=== PATIENT | male | born 1940 | race Caucasian/White ===

== ENCOUNTER 2016-11-22 02:53 | Emergency (ER) | payer MEDICARE ==
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
== END 2016-11-22 03:45 | disposition home or self-care (01) ==
LOC: FB.ED 02:53
CPT/HCPCS: 99282

== ENCOUNTER 2017-02-14 18:27 | Inpatient (IN) | payer MEDICARE ==
[2017-02-14] MEDS: Sodium Chloride 0.9% 10 ML Syringe FLUSH PRN ×2 (19:51→20:11)
[2017-02-14] MEDS ORDERED: Morphine 4 MG/ML Syringe IVPUSH ONE (19:52)
[2017-02-14] MEDS ORDERED: diphenhydrAMINE 50 MG/ML SDV IVPUSH ONE (20:01)
[2017-02-14] MEDS ORDERED: methylPREDNISolone Sodium Succinate 125 MG/2 ML SDV IVPUSH ONE (20:03)
[2017-02-14] MEDS ORDERED: Sodium Chloride 0.9% 10 ML Syringe FLUSH PRN (21:39)
[2017-02-14] MEDS ORDERED: Docusate Sodium 100 MG Cap PO PRN (21:39)
[2017-02-14] MEDS ORDERED: Ondansetron 4 MG/2 ML SDV IV PRN (21:39)
--- NOTE | 2017-02-14 21:39 | EDM.PDOC ---
ED HPI GENERAL MEDICAL PROBLEM - General Chief Complaint: Back Pain or Injury Stated Complaint: FALL Time Seen by Provider: 02/14/17 18:35 Source of Information: Reports: Patient, EMS, EMS Notes Reviewed History Limitations: Reports: Altered Mental Status, Physical Impairment - History of Present Illness INITIAL COMMENTS - FREE TEXT/NARRATIVE: 76 y.o.w.m.with liver mets fell today and came to the ed after he fell at home. Pt is a poor historian, no family. Onset: Today, Gradual Onset Date: 02/14/17 Onset Time: 15:00 Duration: Hour(s): Location: Reports: Back Quality: Reports: Pressure, Stabbing Severity: Moderate Improves with: Reports: Cold Therapy Worsens with: Reports: Movement Context: Reports: Other (fall) Lower Back Pain Score (Numeric/FACES): 10 - Related Data Allergies Allergy/AdvReac Type Severity Reaction Status Date / Time Barbiturates Allergy Cannot Verified 02/14/17 18:31 Remember codeine Allergy Cannot Verified 02/14/17 18:31 Remember cortisone [Cortisone] Allergy Cannot Verified 02/14/17 18:31 Remember gabapentin Allergy UNKNOWN Verified 02/14/17 18:31 iodine Allergy Cannot Verified 02/14/17 18:31 Remember meperidine HCl [From Demerol] Allergy Cannot Verified 02/14/17 18:31 Remember morphine Allergy Cannot Verified 02/14/17 18:31 Remember Penicillins Allergy Cannot Verified 02/14/17 18:31 Remember Sulfa (Sulfonamide Allergy Cannot Verified 02/14/17 18:31 Antibiotics) Remember Tetanus Vaccines and Toxoid Allergy Cannot Verified 02/14/17 18:31 [Tetanus Vaccines & Toxoid] Remember tramadol Allergy Cannot Verified 02/14/17 18:31 Remember opti-raydye Allergy Cannot Uncoded 07/06/16 15:09 Remember Home Meds: Home Meds Baclofen 10 mg PO BID 10/23/13 [History] Cimetidine 800 mg PO BID 10/23/13 [History] Fluticasone Propionate [Flonase] 2 spray GORGE DAILY 10/23/13 [History] Lisinopril 10 mg PO BEDTIME 10/23/13 [History] Metoprolol Tartrate [Lopressor] 100 mg PO BID 10/23/13 [History] Omeprazole 40 mg PO DAILY 10/23/13 [History] Triamcinolone Acetonide [Kenalog 0.1% Crm] 1 applic TOP BID PRN 10/23/13 [ History] Warfarin [Coumadin] 5 mg PO ASDIRECTED 10/23/13 [History] metFORMIN [Glucophage XR] 750 mg PO BID 10/23/13 [History] Calcium Carbonate/Vitamin D3 [Calcium Carb 500 MG] 600 mg PO BID 07/03/16 [ History] Levocetirizine Dihydrochloride [Xyzal] 5 mg PO DAILY 07/03/16 [History] Loperamide [Imodium] 4 mg PO QID PRN 07/03/16 [History] Multivitamin [Multivitamins] 1 each PO DAILY 07/03/16 [History] Tamsulosin [Flomax] 0.4 mg PO BEDTIME 07/03/16 [History] atorvaSTATin [Lipitor] 10 mg PO BEDTIME 07/03/16 [History] Aspirin [Adult Low Dose Aspirin EC] 81 mg PO DAILY 02/15/17 [History] Past Medical History HEENT History: Reports: Hard of Hearing Cardiovascular History: Reports: Afib, CAD, Hypertension, SOB on Exertion Respiratory History: Reports: SOB Gastrointestinal History: Reports: GERD Genitourinary History: Reports: Other (See Below) Other Genitourinary History: CHRONIC KIDNEY DISEASE Musculoskeletal History: Reports: Other (See Below) Other Musculoskeletal History: DJD Endocrine/Metabolic History: Reports: Diabetes, Type II Oncologic (Cancer) History: Reports: Bladder Social & Family History - Tobacco Use Smoking Status *Q: Former Smoker Years of Tobacco use: 5 Used Tobacco, but Quit: Yes Month Tobacco Last Used: unknown Second Hand Smoke Exposure: No - Caffeine Use Caffeine Use: Reports: Coffee, Soda - Alcohol Use Days Per Week of Alcohol Use: 0 - Recreational Drug Use Recreational Drug Use: No ED ROS GENERAL - Review of Systems Review Of Systems: Unable To Obtain ED EXAM,LOWER BACK PAIN/INJURY - Physical Exam Exam: See Below Exam Limited By: Physical Impairment General Appearance: Alert, WD/WN, Mild Distress, Obese Eye Exam: Bilateral Eye: Normal Inspection Ears: Normal External Exam Nose: Normal Inspection Throat/Mouth: Normal Inspection Head: Atraumatic, Normocephalic, Facial Tenderness Neck: Normal Inspection, Supple Respiratory/Chest: No Respiratory Distress, Lungs Clear, Normal Breath Sounds ( poor insp effort) Cardiovascular: Normal Peripheral Pulses, Regular Rate, Rhythm GI/Abdominal: Normal Bowel Sounds, Soft (Male) Exam: Deferred Rectal (Males) Exam: Deferred Back Exam: CVA Tenderness (R), Muscle Spasm, Paraspinal Tenderness, Vertebral Tenderness Extremities: Normal Inspection Neurological: Alert, Normal Mood/Affect, Straight Leg Raise (L) (20 degree), Straight Leg Raise (R) (20 degree), Difficulty Walking Psychiatric: Depressed Mood Skin Exam: Warm, Dry, Intact, Pallor Lymphatic: Other (liver mets) EKG INTERPRETATION EKG Date: 02/15/17 Time: 00:40 Rhythm: NSR Rate (beats/min): 91 [place]: normal P-wave: present QRS: normal ST-T: normal QT: normal Comparison: NA - no prior EKG Course - Vital Signs Text/Narrative:: 76 y.o.w.m.with liver mets fell today and came to the ed after he fell at home. Pt is a poor historian, no family. PE: severe RL back tenderness L1 are, obese, dementia. LabsL WBC 19K HGB 8.3 Na 122 K 6.0 Imaging: L 1 fx, new Mets in liver, not new. Impression: RL back tenderness L1 are, obese, dementia, frequent falls, L1 fx, ( new), urinary retention, UTI, hyperkalemia, Anemia, Hyponatremia, renal insuff, UTI, hypomagnesia. Tx: NS, CaCl, Kayexalate, Levequin, Albut neb, Morphin 2 mg Reexam: Improved. Plan: Admit to med surge tele Addendum: (Noticed later on, pt is allergic to Morphine, was misinformed by pt, gave solu medrol and benadryl, no complication) 02/15/2017 Was called to the bedside, pt has CP: Pt c/o SSCP, aperared pale and dehydrated. Labs: Troponin 0.6 WBC 35.1 Cr. 2.3 HGB 9.0 SBP 113 UD: Hematuria Lactic acid was 2.3 pt was transfered to ICU Tx: NS, Abx, Levophed (SBP dropped to 84) Reexam: CP subsided after hydration, no NTG was given. BP improved after Levophed Last Recorded V/S: Last Vital Signs Temp 36.7 C 02/16/17 06:00 Pulse 91 02/15/17 23:10 Resp 14 02/16/17 06:45 BP 108/62 02/16/17 06:45 Pulse Ox 95 02/16/17 06:45 - Orders/Labs/Meds Orders: Medication Orders Hydrocodone Bitart/Acetaminophen ([place] 325-10 Mg) 1 tab PO Q4H TRAMAINE Last Admin: 02/16/17 04:05 Dose: 1 tab Admin: 02/16/17 00:49 Dose: 1 tab Admin: 02/15/17 19:50 Dose: 1 tab Aspirin (Halfprin) 81 mg PO DAILY TRAMAINE Atorvastatin Calcium (Lipitor) 10 mg PO BEDTIME TRAMAINE Last Admin: 02/15/17 21:04 Dose: 10 mg Baclofen (Lioresal) 10 mg PO BID TRAMAINE Last Admin: 02/15/17 21:04 Dose: 10 mg Calcium Carbonate (Calcium Carbonate/Vitamin D 1250 Mg-200 Unit) 1 tab PO BID TRAMAINE Last Admin: 02/15/17 21:03 Dose: 1 tab Docusate Sodium (Colace) 100 mg PO BID PRN PRN Reason: Constipation Last Admin: 02/14/17 23:03 Dose: 100 mg Famotidine (Pepcid) 20 mg PO BID TRAMAINE Last Admin: 02/15/17 21:05 Dose: 20 mg Fluticasone Propionate (Flonase) 0 gm GORGE DAILY TRAMAINE Hydromorphone HCl (Dilaudid) 0.5 mg IVPUSH Q2H PRN PRN Reason: Pain (severe 7-10) Last Admin: 02/15/17 18:03 Dose: 0.5 mg Admin: 02/15/17 14:49 Dose: 0.5 mg Admin: 02/15/17 08:50 Dose: 0.5 mg Admin: 02/15/17 01:51 Dose: 0.5 mg Heparin Sodium/Dextrose (Heparin 25,000 Units In D5w 500 Ml) 25,000 units in 500 mls @ 20.16 mls/hr IV TITRATE TRAMAINE; 12 UNITS/KG/HR PRN Reason: Protocol Last Admin: 02/16/17 00:32 Dose: 12 units/kg/hr, 20.16 mls/hr Norepinephrine Bitartrate 4 mg (/ Dextrose/Water) 250 mls @ 7.5 mls/hr IV TITRATE TRAMAINE; 2 MCG/MIN PRN Reason: Protocol Last Titration: 02/16/17 05:32 Dose: 4 mcg/min, 15 mls/hr Titration: 02/16/17 04:30 Dose: 3 mcg/min, 11.25 mls/hr Titration: 02/16/17 03:45 Dose: 4 mcg/min, 15 mls/hr Titration: 02/16/17 03:33 Dose: 3 mcg/min, 11.25 mls/hr Admin: 02/16/17 03:01 Dose: 2 mcg/min, 7.5 mls/hr Sodium Chloride (Normal Saline) 1,000 mls @ 70 mls/hr IV ASDIRECTED [facility] Lisinopril (Prinivil) 10 mg PO BEDTIME [facility] Last Admin: 02/15/17 21:05 Dose: 10 mg Loperamide HCl (Imodium) 4 mg PO QID PRN PRN Reason: Diarrhea Last Admin: 02/15/17 13:12 Dose: 4 mg Metoprolol Tartrate (Lopressor) 100 mg PO BID [facility] Last Admin: 02/15/17 21:04 Dose: 100 mg Multivitamins/Minerals/Vitamin C (Tab-A-Lindsey) 1 tab PO DAILY [facility] Omeprazole (Omeprazole) 40 mg PO DAILY [facility] Ondansetron HCl (Zofran) 8 mg IV Q6H PRN PRN Reason: Nausea/Vomiting Sodium Chloride (Saline Flush) 10 ml FLUSH ASDIRECTED PRN PRN Reason: Keep Vein Open Last Admin: 02/16/17 00:31 Dose: 10 ml Admin: 02/15/17 08:51 Dose: 10 ml Admin: 02/15/17 01:51 Dose: 10 ml Admin: 02/15/17 00:50 Dose: 10 ml Admin: 02/15/17 00:42 Dose: 10 ml Admin: 02/14/17 20:11 Dose: 10 ml Admin: 02/14/17 19:51 Dose: 10 ml Sodium Chloride (Saline Flush) 10 ml FLUSH ASDIRECTED PRN PRN Reason: Keep Vein Open Tamsulosin HCl (Flomax) 0.4 mg PO BEDTIME [facility] Last Admin: 02/15/17 21:03 Dose: 0.4 mg Labs: Laboratory Tests 02/14/17 02/14/17 02/14/17 Range/Units 19:45 19:45 19:45 WBC 19.3 H (4.5-12.0) X10-3/uL RBC 3.61 L (4.30-5.75) x10(6)uL Hgb 8.3 L (11.5-15.5) g/dL Hct 25.3 L (30.0-51.3) % MCV 70.2 L (80-96) fL MCH 23.1 L (27.7-33.6) pg MCHC 32.9 (32.2-35.4) g/dL RDW 16.7 H (11.5-15.5) % Plt Count 404 H (125-369) X10(3)uL MPV 8.9 (7.4-10.4) fL Add Manual Diff Yes Neutrophils % (Manual) 83 H (46-82) % Band Neutrophils % 1 (0-6) % Lymphocytes % (Manual) 11 L (13-37) % Monocytes % (Manual) 5 (4-12) % Anisocytosis Rare Microcytosis Few PT 11.6 H (8.7-11.1) INR 1.15 H (0.89-1.13) Sodium 127 L (135-145) mmol/L Potassium 6.0 H D (3.5-5.3) mmol/L Chloride 98 L (100-110) mmol/L Carbon Dioxide 17 L (23-29) mmol/L BUN 38 H D (8-23) mg/dL Creatinine 2.8 H* (0.6-1.3) mg/dL Est Cr Clr Drug Dosing 23.87 mL/min Estimated GFR (MDRD) 22 L (>60) BUN/Creatinine Ratio 13.6 (9-20) Glucose 156 H (80-116) mg/dL Lactic Acid (0.5-2.2) mmol/L Calcium 9.5 (8.6-10.2) mg/dL Urine Color (YELLOW) Urine Appearance (CLEAR) Urine pH (5.0-6.5) Ur Specific [place] (1.010-1.025) Urine Protein (NEGATIVE) mg/dL Urine Glucose (UA) (NEGATIVE) mg/dL Urine Ketones (NEGATIVE) mg/dL Urine Occult Blood (NEGATIVE) Urine Nitrite (NEGATIVE) Urine Bilirubin (NEGATIVE) Urine Urobilinogen (NEGATIVE) mg/dL Ur Leukocyte Esterase (NEGATIVE) Urine RBC (0) Urine WBC (0) Ur Squamous Epith Cells (NS,R,O) Urine Bacteria (NS) Coarse Granular Casts (NS) 02/14/17 02/14/17 Range/Units 20:25 21:28 WBC (4.5-12.0) X10-3/uL RBC (4.30-5.75) x10(6)uL Hgb (11.5-15.5) g/dL Hct (30.0-51.3) % MCV (80-96) fL MCH (27.7-33.6) pg MCHC (32.2-35.4) g/dL RDW (11.5-15.5) % Plt Count (125-369) X10(3)uL MPV (7.4-10.4) fL Add Manual Diff Neutrophils % (Manual) (46-82) % Band Neutrophils % (0-6) % Lymphocytes % (Manual) (13-37) % Monocytes % (Manual) (4-12) % Anisocytosis Microcytosis PT (8.7-11.1) INR (0.89-1.13) Sodium (135-145) mmol/L Potassium (3.5-5.3) mmol/L Chloride (100-110) mmol/L Carbon Dioxide (23-29) mmol/L BUN (8-23) mg/dL Creatinine (0.6-1.3) mg/dL Est Cr Clr Drug Dosing mL/min Estimated GFR (MDRD) (>60) BUN/Creatinine Ratio (9-20) Glucose (80-116) mg/dL Lactic Acid 1.0 (0.5-2.2) mmol/L Calcium (8.6-10.2) mg/dL Urine Color Yellow (YELLOW) Urine Appearance Cloudy (CLEAR) Urine pH 5.0 (5.0-6.5) Ur Specific [place] 1.020 (1.010-1.025) Urine Protein 30 H (NEGATIVE) mg/dL Urine Glucose (UA) Normal (NEGATIVE) mg/dL Urine Ketones Negative (NEGATIVE) mg/dL Urine Occult Blood Large H (NEGATIVE) Urine Nitrite Negative (NEGATIVE) Urine Bilirubin Negative (NEGATIVE) Urine Urobilinogen Normal (NEGATIVE) mg/dL Ur Leukocyte Esterase Small H (NEGATIVE) Urine RBC 10-20 H (0) Urine WBC 5-10 (0) Ur Squamous Epith Cells Few H (NS,R,O) Urine Bacteria Few H (NS) Coarse Granular Casts Few H (NS) Meds: Medications Generic Name Dose Route Start Last Admin Trade Name Freq PRN Reason Stop Dose Admin Hydrocodone Bitart/Acetaminophen 1 tab 02/15/17 20:00 02/16/17 04:05 [place] 325-10 Mg PO 1 tab Q4H TRAMAINE Administration Aspirin 81 mg 02/16/17 09:00 Halfprin PO DAILY TRAMAINE Atorvastatin Calcium 10 mg 02/15/17 21:00 02/15/17 21:04 Lipitor PO 10 mg BEDTIME TRAMAINE Administration Baclofen 10 mg 02/15/17 21:00 02/15/17 21:04 Lioresal PO 10 mg BID TRAMAINE Administration Calcium Carbonate 1 tab 02/15/17 21:00 02/15/17 21:03 Calcium Carbonate/Vitamin D 1250 Mg-200 Unit PO 1 tab BID TRAMAINE Administration Docusate Sodium 100 mg 02/14/17 21:39 02/14/17 23:03 Colace PO 100 mg BID PRN Administration Constipation Famotidine 20 mg 02/15/17 21:00 02/15/17 21:05 Pepcid PO 20 mg BID TRAMAINE Administration Fluticasone Propionate 0 gm 02/16/17 09:00 Flonase GORGE DAILY TRAMAINE Hydromorphone HCl 0.5 mg 02/14/17 21:39 02/15/17 18:03 Dilaudid IVPUSH 0.5 mg Q2H PRN Administration Pain (severe 7-10) Heparin Sodium/Dextrose 25,000 units in 500 mls @ 20.16 mls/hr 02/15/17 23:30 02/16/17 00:32 Heparin 25,000 Units In D5w 500 Ml IV 12 units/kg/hr TITRATE TRAMAINE 20.16 mls/hr Protocol Administration 12 UNITS/KG/HR Norepinephrine Bitartrate 4 mg 250 mls @ 7.5 mls/hr 02/16/17 02:30 02/16/17 05:32 / Dextrose/Water IV 4 mcg/min TITRATE TRAMAINE 15 mls/hr Protocol Titration 2 MCG/MIN Sodium Chloride 1,000 mls @ 70 mls/hr 02/16/17 04:49 Normal Saline IV ASDIRECTED [facility]AMAINE Lisinopril 10 mg 02/15/17 21:00 02/15/17 21:05 Prinivil PO 10 mg BEDTIME TRAMAINE Administration Loperamide HCl 4 mg 02/15/17 12:13 02/15/17 13:12 Imodium PO 4 mg QID PRN Administration Diarrhea Metoprolol Tartrate 100 mg 02/15/17 21:00 02/15/17 21:04 Lopressor PO 100 mg BID TRAMAINE Administration Multivitamins/Minerals/Vitamin C 1 tab 02/16/17 09:00 Tab-A-Lindsey PO DAILY [facility]AMA[facility] Omeprazole 40 mg 02/16/17 09:00 Omeprazole PO DAILY [facility] Ondansetron HCl 8 mg 02/14/17 21:39 Zofran IV Q6H PRN Nausea/Vomiting Sodium Chloride 10 ml 02/14/17 19:13 02/16/17 00:31 Saline Flush FLUSH 10 ml ASDIRECTED PRN Administration Keep Vein Open Sodium Chloride 10 ml 02/14/17 21:39 Saline Flush FLUSH ASDIRECTED PRN Keep Vein Open Tamsulosin HCl 0.4 mg 02/15/17 21:00 02/15/17 21:03 Flomax PO 0.4 mg BEDTIME TRAMAINE Administration Discontinued Medications Generic Name Dose Route Start Last Admin Trade Name Freq PRN Reason Stop Dose Admin Hydrocodone Bitart/Acetaminophen 1 tab 02/15/17 16:11 02/15/17 16:42 [place] 325-5 Mg PO 1 tab Q4H PRN Administration Pain Albuterol 2.5 mg 02/15/17 00:09 02/15/17 00:52 Proventil Neb Soln NEB 02/15/17 00:10 2.5 mg Q2H STA Administration Calcium Chloride 1 gm 02/15/17 00:09 02/15/17 00:43 Calcium Chloride 10% IV 02/15/17 00:10 1 gm ONETIME ONE Administration Diphenhydramine HCl 25 mg 02/14/17 20:01 02/14/17 20:07 Benadryl IVPUSH 02/14/17 20:02 25 mg ONETIME ONE Administration Heparin Sodium (Porcine) 5,000 units 02/15/17 23:28 02/16/17 00:32 Heparin Sodium IVPUSH 02/15/17 23:29 5,000 units ONETIME ONE Administration Levofloxacin/Dextrose 500 mg/ 100 mls @ 100 mls/hr 02/14/17 21:47 02/14/17 23 :01 Premix IV 02/14/17 22:46 100 mls/hr ONETIME ONE Administration Sodium Chloride 250 mls @ 100 mls/hr 02/14/17 22:45 02/14/17 22:56 Normal Saline IV 100 mls/hr ASDIRECTED TRAMAINE Administration Sodium Chloride 1,000 mls @ 125 mls/hr 02/15/17 09:30 02/15/17 22:34 Normal Saline IV 125 mls/hr ASDIRECTED TRAMAINE Administration Sodium Chloride 1,000 mls @ 999 mls/hr 02/15/17 21:44 02/15/17 21:20 Normal Saline IV 02/15/17 22:44 999 mls/hr .BOLUS ONE Administration Vancomycin HCl 1,000 mg/ 250 mls @ 167 mls/hr 02/15/17 22:31 02/16/17 01:11 Dextrose/Water IV 02/16/17 00:00 Not Given ONETIME ONE Vancomycin HCl 1,500 mg/ 500 mls @ 333.333 mls/hr 02/15/17 23:00 02/16/17 00: 15 Sodium Chloride IV 02/16/17 00:29 333.333 mls/hr ONETIME ONE Administration Methylprednisolone Sodium Succinate 125 mg 02/14/17 20:03 02/14/17 20:07 Solu-Medrol IVPUSH 02/14/17 20:04 125 mg ONETIME ONE Administration Morphine Sulfate 4 mg 02/14/17 19:52 02/14/17 19:56 Morphine IVPUSH 02/14/17 19:53 4 mg ONETIME ONE Administration Nitroglycerin 1 gm 02/15/17 22:41 02/15/17 23:30 Nitro-Bid 2% TOP 02/15/17 22:42 Not Given ONETIME ONE Non-Formulary Medication 5 mg 02/16/17 09:00 Levocetirizine Dihydrochloride [Xyzal] PO DAILY TRAMAINE Sodium Polystyrene Sulfonate 45 gm 02/15/17 00:07 02/15/17 00:43 Kayexalate PO 02/15/17 00:08 45 gm NOW ONE Administration Tramadol HCl 50 mg 02/15/17 12:45 Ultram PO Q6H TRAMAINE Departure - Departure Time of Disposition: 20:00 Disposition: Admitted As Inpatient 64 Condition: fair Clinical Impression: Urinary (tract) obstruction Fall Qualifiers: Encounter type: subsequent encounter Qualified Code(s): W19.XXXD - Unspecified fall, subsequent encounter Closed L1 vertebral fracture Qualifiers: Encounter type: initial encounter Fracture morphology: other fracture Qualified Code(s): S32.018A - Other fracture of first lumbar vertebra, initial encounter for closed fracture Dementia Qualifiers: Dementia type: unspecified type - Discharge Information
[2017-02-14] MEDS ORDERED: Levofloxacin/Dextrose 5%-Water 500 MG in Premix Bag 1 BAG IV ONE (21:47)
[2017-02-14] MEDS ORDERED: Sodium Chloride 0.9% 250 ML IV SCH (22:45)
[2017-02-15] MEDS ORDERED: Sodium Polystyrene Sulfonate 15 GM/60 ML Susp 60 ML Bot PO ONE (00:07)
[2017-02-15] MEDS ORDERED: Calcium Chloride 10% 1 GM/10 ML Syringe IV ONE (00:09)
[2017-02-15] MEDS ORDERED: Albuterol 0.083% 2.5 MG/3 ML Neb Soln NEB STA (00:09)
[2017-02-15] MEDS: Sodium Chloride 0.9% 10 ML Syringe FLUSH PRN ×4 (00:42→08:51)
[2017-02-15] MEDS: HYDROmorphone 2 MG/ML SDV IVPUSH PRN ×5 (01:51→18:03)
--- NOTE | 2017-02-15 09:12 | PCM.HP ---
H&P History of Present Illness - General Date of Service: 02/15/17 Admit Problem/Dx: Admission Diagnosis/Problem Admission Diagnosis/Problem Back pain Source of Information: Patient History Limitations: Reports: Other (Hearing impairment) - History of Present Illness Initial Comments - Free Text/Narative: This is a 76-year-old male patient states he was taking something out of the oven yesterday. And he slipped and fell back and hit his head. He says he does not remember for about 30 minutes. After that he had excruciating back pain. He called the ambulance and was brought to the ER. He was diagnosed l1 compression fracture. He also had renal failure, leukocytosis, hyponatremia and liver metastases on this CT. He states he has history of bladder cancer and is not being followed by anyone at this time. He states he has low back pain at 10/10. He has no leg pain, paresthesias or weakness. He states he's had low back and neck surgery in the past. Lower Back Pain Score (Numeric/FACES): 10 - Related Data Allergies/Adverse Reactions: Allergies Allergy/AdvReac Type Severity Reaction Status Date / Time Barbiturates Allergy Cannot Verified 02/14/17 18:31 Remember codeine Allergy Cannot Verified 02/14/17 18:31 Remember cortisone [Cortisone] Allergy Cannot Verified 02/14/17 18:31 Remember gabapentin Allergy UNKNOWN Verified 02/14/17 18:31 iodine Allergy Cannot Verified 02/14/17 18:31 Remember meperidine HCl [From Demerol] Allergy Cannot Verified 02/14/17 18:31 Remember morphine Allergy Cannot Verified 02/14/17 18:31 Remember Penicillins Allergy Cannot Verified 02/14/17 18:31 Remember Sulfa (Sulfonamide Allergy Cannot Verified 02/14/17 18:31 Antibiotics) Remember Tetanus Vaccines and Toxoid Allergy Cannot Verified 02/14/17 18:31 [Tetanus Vaccines & Toxoid] Remember tramadol Allergy Cannot Verified 02/14/17 18:31 Remember opti-raydye Allergy Cannot Uncoded 07/06/16 15:09 Remember Home Medications: Home Meds Baclofen 10 mg PO BID 10/23/13 [History] Cimetidine 800 mg PO BID 10/23/13 [History] Fluticasone Propionate [Flonase] 2 spray GORGE DAILY 10/23/13 [History] Lisinopril 10 mg PO BEDTIME 10/23/13 [History] Metoprolol Tartrate [Lopressor] 100 mg PO BID 10/23/13 [History] Omeprazole 40 mg PO DAILY 10/23/13 [History] Triamcinolone Acetonide [Kenalog 0.1% Crm] 1 applic TOP BID PRN 10/23/13 [ History] Warfarin [Coumadin] 5 mg PO ASDIRECTED 10/23/13 [History] metFORMIN [Glucophage XR] 750 mg PO BID 10/23/13 [History] Calcium Carbonate/Vitamin D3 [Calcium Carb 500 MG] 600 mg PO BID 07/03/16 [ History] Levocetirizine Dihydrochloride [Xyzal] 5 mg PO DAILY 07/03/16 [History] Loperamide [Imodium] 4 mg PO QID PRN 07/03/16 [History] Multivitamin [Multivitamins] 1 each PO DAILY 07/03/16 [History] Tamsulosin [Flomax] 0.4 mg PO BEDTIME 07/03/16 [History] atorvaSTATin [Lipitor] 10 mg PO BEDTIME 07/03/16 [History] Aspirin [Adult Low Dose Aspirin EC] 81 mg PO DAILY 02/15/17 [History] Past Medical History HEENT History: Reports: Hard of Hearing Cardiovascular History: Reports: Afib, CAD, Hypertension, SOB on Exertion Respiratory History: Reports: SOB Gastrointestinal History: Reports: GERD Genitourinary History: Reports: Other (See Below) Other Genitourinary History: CHRONIC KIDNEY DISEASE Musculoskeletal History: Reports: Other (See Below) Other Musculoskeletal History: DJD Endocrine/Metabolic History: Reports: Diabetes, Type II Oncologic (Cancer) History: Reports: Bladder Social & Family History - Tobacco Use Smoking Status *Q: Former Smoker Years of Tobacco use: 5 Used Tobacco, but Quit: Yes Month Tobacco Last Used: unknown Second Hand Smoke Exposure: No - Caffeine Use Caffeine Use: Reports: Coffee, Soda - Alcohol Use Days Per Week of Alcohol Use: 0 - Recreational Drug Use Recreational Drug Use: No H&P Review of Systems - Review of Systems: Review Of Systems: See Below General: Reports: No Symptoms HEENT: Reports: No Symptoms Pulmonary: Reports: Shortness of Breath, Wheezing Cardiovascular: Reports: No Symptoms Gastrointestinal: Reports: Abdominal Pain, Diarrhea. Denies: Black Stool, Bloody Stool, Hematochezia, Melena, Nausea, Vomiting Genitourinary: Reports: Dysuria Musculoskeletal: Reports: Neck Pain, Back Pain Skin: Reports: Rash Psychiatric: Reports: No Symptoms Neurological: Reports: No Symptoms Hematologic/Lymphatic: Reports: No Symptoms Immunologic: Reports: No Symptoms Exam - Exam Exam: See Below - Vital Signs Vital Signs: Last Vital Signs Temp 98.5 F 02/15/17 06:30 Pulse 80 02/15/17 06:30 Resp 12 02/15/17 06:30 BP 139/62 02/15/17 06:30 Pulse Ox 92 L 02/15/17 06:30 Weight: 185 lb 9.6 oz - Exam General: Alert, Oriented, Cooperative, Other (Hard of hearing) HEENT: Conjunctiva Clear, Mucosa Moist & Rose, Posterior Pharynx Clear. No: Hearing Intact Neck: Supple, Trachea Midline Lungs: Clear to Auscultation, Normal Respiratory Effort. No: Crackles, Rales, Rhonchi, Rub Cardiovascular: Regular Rate, Regular Rhythm. No: Bradycardia, Tachycardia Abdomen: Normal Bowel Sounds, Soft. No: Distention, Guarding, Tenderness Back Exam: Normal Inspection, Vertebral Tenderness (Low back to palpation) Extremities: Normal Inspection. No: Edema Skin: Warm, Rash (Elbows) Neuro Extensive - Mental Status: Alert, Oriented x3, Normal Mood/Affect, Normal Cognition Neuro Extensive - Motor, Sensory, Reflexes: Normal Gait Psychiatric: Alert, Normal Affect, Normal Mood - Patient Data Lab Results last 24 hrs: Laboratory Results - last 24 hr 02/15/17 02/15/17 Range/Units 00:11 06:30 Sodium 128 L (135-145) mmol/L Potassium 5.5 H (3.5-5.3) mmol/L Chloride 100 (100-110) mmol/L Carbon Dioxide 18 L (23-29) mmol/L BUN 36 H (8-23) mg/dL Creatinine 2.3 H* (0.6-1.3) mg/dL Est Cr Clr Drug Dosing 28.19 mL/min Estimated GFR (MDRD) 28 L (>60) BUN/Creatinine Ratio 15.7 (9-20) Glucose 233 H (80-116) mg/dL Calcium 9.4 (8.6-10.2) mg/dL Magnesium 1.4 L (1.8-2.5) mg/dL Result Diagrams: 02/14/17 19:45 02/15/17 06:30 Imaging Impressions last 24 hrs: CT scan shows new L1 fracture and liver metastases, thickening of the bladder, increased density within the collecting system of the left kidney possibly representing hemorrhage. CT of the neck shows no acute changes CT of the head shows chronic small vessel disease and age related changes *Q Meaningful Use (ADM) - VTE *Q VTE Criteria *Q: - Stroke *Q Stroke Criteria *Q: - AMI *Q AMI Criteria *Q: - Problem List (1) Microcytic anemia SNOMED Code(s): 615198341 ICD Code: D50.9 - IRON DEFICIENCY ANEMIA, UNSPECIFIED Status: Acute Current Visit: Yes (2) Renal failure SNOMED Code(s): 22800756 ICD Code: N19 - UNSPECIFIED KIDNEY FAILURE Status: Acute Current Visit: Yes Qualifiers: Renal failure chronicity: chronic Chronic kidney disease stage: stage 4 ( severe) Qualified Code(s): N18.4 - Chronic kidney disease, stage 4 (severe) (3) Dyspnea SNOMED Code(s): 686729757 ICD Code: R06.00 - DYSPNEA, UNSPECIFIED Status: Acute Current Visit: Yes (4) Bladder CA in situ SNOMED Code(s): 27422973 ICD Code: D09.0 - CARCINOMA IN SITU OF BLADDER Status: Acute Current Visit: Yes (5) Liver metastasis Status: Acute Current Visit: Yes (6) Palliative care status SNOMED Code(s): 682984730 ICD Code: Z51.5 - ENCOUNTER FOR PALLIATIVE CARE Status: Acute Current Visit: Yes (7) Closed L1 vertebral fracture SNOMED Code(s): 888704731 ICD Code: S32.019A - UNSP FRACTURE OF FIRST LUMBAR VERTEBRA, INIT FOR CLOS FX Status: Acute Current Visit: Yes Qualifiers: Encounter type: initial encounter Fracture morphology: other fracture Qualified Code(s): S32.018A - Other fracture of first lumbar vertebra, initial encounter for closed fracture (8) Fall SNOMED Code(s): 8568399, 465426266 ICD Code: W19.XXXA - UNSPECIFIED FALL, INITIAL ENCOUNTER Status: Acute Current Visit: Yes Qualifiers: Encounter type: subsequent encounter Qualified Code(s): W19.XXXD - Unspecified fall, subsequent encounter (9) Hyponatremia SNOMED Code(s): 35110759 ICD Code: E87.1 - HYPO-OSMOLALITY AND HYPONATREMIA Status: Acute Current Visit: Yes Problem List Initiated/Reviewed/Updated: Yes Orders Last 24hrs: Active Orders 24 hr Category Date Time Status Telemetry Monitoring [Cardiac Monitoring] [RC] QSHIFT Care 02/15/17 00:10 Active Sodium Chloride 0.9% [Normal Saline] 250 ml Med 02/14/17 22:45 Active IV ASDIRECTED EKG 12 Lead [EK] Routine Ther 02/15/17 00:11 Ordered Medication Orders Docusate Sodium (Colace) 100 mg PO BID PRN PRN Reason: Constipation Last Admin: 02/14/17 23:03 Dose: 100 mg Hydromorphone HCl (Dilaudid) 0.5 mg IVPUSH Q2H PRN PRN Reason: Pain (severe 7-10) Last Admin: 02/15/17 08:50 Dose: 0.5 mg Admin: 02/15/17 01:51 Dose: 0.5 mg Sodium Chloride (Normal Saline) 250 mls @ 100 mls/hr IV ASDIRECTED TRAMAINE Last Admin: 02/14/17 22:56 Dose: 100 mls/hr Ondansetron HCl (Zofran) 8 mg IV Q6H PRN PRN Reason: Nausea/Vomiting Sodium Chloride (Saline Flush) 10 ml FLUSH ASDIRECTED PRN PRN Reason: Keep Vein Open Last Admin: 02/15/17 08:51 Dose: 10 ml Admin: 02/15/17 01:51 Dose: 10 ml Admin: 02/15/17 00:50 Dose: 10 ml Admin: 02/15/17 00:42 Dose: 10 ml Admin: 02/14/17 20:11 Dose: 10 ml Admin: 02/14/17 19:51 Dose: 10 ml Sodium Chloride (Saline Flush) 10 ml FLUSH ASDIRECTED PRN PRN Reason: Keep Vein Open Assessment/Plan Comment:: 1. Admit for pain control. 2. Patient wants to be a full code. 3. PT/OT evaluation. 4. Findings some thing for pain control. He has lots allergies and renal failure which limits our choices. 5. Guaiac stools, ferritin, reticulocyte count, and iron. 6. EKG because a previous history of atrial fib. 7. chest x-ray because of shortness of breath. 8. MRI renal in regards to abnormal CT and left kidney. 9. Renal diet. 10. IV fluids to try to correct his hyponatremia.
[2017-02-15] MEDS ORDERED: Loperamide 2 MG Cap PO PRN (12:13)
[2017-02-15] MEDS ORDERED: traMADol 50 MG Tab PO SCH (12:45)
[2017-02-15] MEDS: Sodium Chloride 0.9% 1,000 ML IV SCH ×2 (14:46→22:34)
[2017-02-15] MEDS ORDERED: Acetaminophen/HYDROcodone 325-5 MG Tab PO PRN (16:11)
[2017-02-15] MEDS: Acetaminophen/HYDROcodone 325-10 MG Tab PO SCH (19:50)
[2017-02-15] MEDS ORDERED: Tamsulosin 0.4 MG Cap.ER PO SCH (21:00)
[2017-02-15] MEDS ORDERED: Metoprolol Tartrate 50 MG Tab PO SCH (21:00)
[2017-02-15] MEDS ORDERED: Lisinopril 10 MG Tab PO SCH (21:00)
[2017-02-15] MEDS ORDERED: atorvaSTATin 10 MG Tab PO SCH (21:00)
[2017-02-15] MEDS: Calcium Carbonate/Vitamin D3 1250 MG-200 Unit Tab PO SCH (21:03)
[2017-02-15] MEDS: Baclofen 10 MG Tab PO SCH (21:04)
[2017-02-15] MEDS: Famotidine 20 MG Tab PO SCH (21:05)
[2017-02-15] MEDS ORDERED: Sodium Chloride 0.9% 1,000 ML IV ONE (21:44)
[2017-02-15] MEDS ORDERED: Nitroglycerin 2% Oint 1 GM UD Packet TOP ONE (22:41)
[2017-02-15] MEDS ORDERED: Heparin Sodium 5,000 Units/ML Vial IVPUSH ONE (23:28)
[2017-02-15] MEDS ORDERED: Heparin Sodium/D5W 25,000 UNITS/500 ML BAG IV SCH (23:30)
[2017-02-16] MEDS: Sodium Chloride 0.9% 10 ML Syringe FLUSH PRN (00:31)
[2017-02-16] MEDS: Acetaminophen/HYDROcodone 325-10 MG Tab PO SCH ×3 (00:49→08:25)
[2017-02-16] MEDS ORDERED: Norepinephrine 4 MG in Dextrose 5% in Water 246 ML IV SCH ×2 (02:30)
[2017-02-16] MEDS ORDERED: Sodium Chloride 0.9% 1,000 ML IV SCH (04:49)
[2017-02-16] MEDS: Calcium Carbonate/Vitamin D3 1250 MG-200 Unit Tab PO SCH (08:57)
[2017-02-16] MEDS ORDERED: Aspirin 81 MG Tab.EC PO SCH (09:00)
[2017-02-16] MEDS ORDERED: Non-Formulary Medication 1 Each (Levocetirizine Dihydrochloride [Xyzal] 5 MG) PO SCH (09:00)
[2017-02-16] MEDS ORDERED: Omeprazole 20 MG Cap.CR PO SCH (09:00)
[2017-02-16] MEDS ORDERED: Multivitamin Tab PO SCH (09:00)
[2017-02-16] MEDS ORDERED: Metoprolol Tartrate 100 MG Tab PO SCH (09:00)
[2017-02-16] MEDS ORDERED: Fluticasone Propionate Nasal Spray 16 GM Bottle NAS SCH (09:00)
--- NOTE | 2017-02-16 09:09 | PCM.PN ---
- General Info Date of Service: 02/16/17 Admission Dx/Problem (Free Text): Patient states he is having bad low back pain today again. The nurses state the hydrocodone has been helping. He also states he has some chest pain currently. Last night he had chest pain and was transferred to the ICU. White count was 37 he was started on vancomycin and heparin and troponin was 0.67. He is currently Levophed drip per the doctor in house. This morning his pressure has come up and then wean him off we will set. His pain is more. And his troponin I was 3.75. EKG with normal sinus rhythm to left bundle branch block. Patient's always short of breath he states. - Patient Data Vitals - most recent: Last Vital Signs Temp 97.9 F 02/16/17 08:15 Pulse 112 H 02/16/17 08:46 Resp 20 02/16/17 08:30 BP 141/72 H 02/16/17 08:46 Pulse Ox 92 L 02/16/17 08:30 Weight - most recent: 185 lb 9.6 oz I&O - last 24 hours: Intake & Output 02/15/17 02/16/17 02/16/17 22:59 06:59 14:59 Intake Total 2791 1369 Output Total 400 250 Balance 2391 1119 Lab Results last 24 hrs: Laboratory Results - last 24 hr 02/15/17 02/15/17 02/15/17 Range/Units 17:24 21:25 21:33 WBC 35.1 H* (4.5-12.0) X10-3/uL RBC 3.87 L (4.30-5.75) x10(6)uL Hgb 9.0 L (11.5-15.5) g/dL Hct 27.3 L (30.0-51.3) % MCV 70.6 L (80-96) fL MCH 23.1 L (27.7-33.6) pg MCHC 32.7 (32.2-35.4) g/dL RDW 16.8 H (11.5-15.5) % Plt Count 644 H (125-369) X10(3)uL MPV 8.9 (7.4-10.4) fL Add Manual Diff Yes Neutrophils % (Manual) 80 (46-82) % Band Neutrophils % 3 (0-6) % Lymphocytes % (Manual) 10 L (13-37) % Monocytes % (Manual) 7 (4-12) % Hypochromasia Poikilocytosis Anisocytosis Microcytosis PT (8.7-11.1) INR (0.89-1.13) APTT (24.4-33.2) SECONDS D-Dimer, Quantitative (100-400) ng/mL Sodium (135-145) mmol/L Potassium (3.5-5.3) mmol/L Chloride (100-110) mmol/L Carbon Dioxide (23-29) mmol/L BUN (8-23) mg/dL Creatinine (0.6-1.3) mg/dL Est Cr Clr Drug Dosing mL/min Estimated GFR (MDRD) (>60) BUN/Creatinine Ratio (9-20) Glucose (80-116) mg/dL POC Glucose 178 H (80-116) mg/dL Lactic Acid (0.5-2.2) mmol/L Calcium (8.6-10.2) mg/dL Magnesium (1.8-2.5) mg/dL Total Bilirubin (0.1-1.3) mg/dL AST (5-27) IU/L ALT (14-26) IU/L Alkaline Phosphatase (56-112) IU/L Creatine Kinase (60-160) IU/L Troponin I (0.02-0.06) NG/ML B-Natriuretic Peptide (0-100) pg/mL Total Protein (6.0-8.0) g/dL Albumin (3.2-4.6) g/dL Globulin g/dL Albumin/Globulin Ratio Urine Color Yellow (YELLOW) Urine Appearance Slightly cloudy (CLEAR) Urine pH 6.0 (5.0-6.5) Ur Specific [place] 1.015 (1.010-1.025) Urine Protein 100 H (NEGATIVE) mg/dL Urine Glucose (UA) 50 H (NEGATIVE) mg/dL Urine Ketones Negative (NEGATIVE) mg/dL Urine Occult Blood Large H (NEGATIVE) Urine Nitrite Negative (NEGATIVE) Urine Bilirubin Negative (NEGATIVE) Urine Urobilinogen Normal (NEGATIVE) mg/dL Ur Leukocyte Esterase Negative (NEGATIVE) Urine RBC 5-10 (0) Urine WBC 0-5 (0) Ur Squamous Epith Cells Rare (NS,R,O) Urine Bacteria Few H (NS) Coarse Granular Casts Few H (NS) 02/15/17 02/15/17 02/15/17 Range/Units 21:33 21:33 21:33 WBC (4.5-12.0) X10-3/uL RBC (4.30-5.75) x10(6)uL Hgb (11.5-15.5) g/dL Hct (30.0-51.3) % MCV (80-96) fL MCH (27.7-33.6) pg MCHC (32.2-35.4) g/dL RDW (11.5-15.5) % Plt Count (125-369) X10(3)uL MPV (7.4-10.4) fL Add Manual Diff Neutrophils % (Manual) (46-82) % Band Neutrophils % (0-6) % Lymphocytes % (Manual) (13-37) % Monocytes % (Manual) (4-12) % Hypochromasia Poikilocytosis Anisocytosis Microcytosis PT 12.0 H (8.7-11.1) INR 1.19 H (0.89-1.13) APTT (24.4-33.2) SECONDS D-Dimer, Quantitative (100-400) ng/mL Sodium 129 L (135-145) mmol/L Potassium 4.6 (3.5-5.3) mmol/L Chloride 101 (100-110) mmol/L Carbon Dioxide 16 L (23-29) mmol/L BUN 39 H (8-23) mg/dL Creatinine 2.3 H* (0.6-1.3) mg/dL Est Cr Clr Drug Dosing 28.19 mL/min Estimated GFR (MDRD) 28 L (>60) BUN/Creatinine Ratio 17.0 (9-20) Glucose 257 H (80-116) mg/dL POC Glucose (80-116) mg/dL Lactic Acid (0.5-2.2) mmol/L Calcium 9.1 (8.6-10.2) mg/dL Magnesium 1.3 L (1.8-2.5) mg/dL Total Bilirubin (0.1-1.3) mg/dL AST (5-27) IU/L ALT (14-26) IU/L Alkaline Phosphatase (56-112) IU/L Creatine Kinase 89 (60-160) IU/L Troponin I 0.67 H* (0.02-0.06) NG/ML B-Natriuretic Peptide (0-100) pg/mL Total Protein (6.0-8.0) g/dL Albumin (3.2-4.6) g/dL Globulin g/dL Albumin/Globulin Ratio Urine Color (YELLOW) Urine Appearance (CLEAR) Urine pH (5.0-6.5) Ur Specific [place] (1.010-1.025) Urine Protein (NEGATIVE) mg/dL Urine Glucose (UA) (NEGATIVE) mg/dL Urine Ketones (NEGATIVE) mg/dL Urine Occult Blood (NEGATIVE) Urine Nitrite (NEGATIVE) Urine Bilirubin (NEGATIVE) Urine Urobilinogen (NEGATIVE) mg/dL Ur Leukocyte Esterase (NEGATIVE) Urine RBC (0) Urine WBC (0) Ur Squamous Epith Cells (NS,R,O) Urine Bacteria (NS) Coarse Granular Casts (NS) 02/15/17 02/15/17 02/15/17 Range/Units 21:33 21:33 22:50 WBC (4.5-12.0) X10-3/uL RBC (4.30-5.75) x10(6)uL Hgb (11.5-15.5) g/dL Hct (30.0-51.3) % MCV (80-96) fL MCH (27.7-33.6) pg MCHC (32.2-35.4) g/dL RDW (11.5-15.5) % Plt Count (125-369) X10(3)uL MPV (7.4-10.4) fL Add Manual Diff Neutrophils % (Manual) (46-82) % Band Neutrophils % (0-6) % Lymphocytes % (Manual) (13-37) % Monocytes % (Manual) (4-12) % Hypochromasia Poikilocytosis Anisocytosis Microcytosis PT (8.7-11.1) INR (0.89-1.13) APTT 26.8 (24.4-33.2) SECONDS D-Dimer, Quantitative 2810 H (100-400) ng/mL Sodium (135-145) mmol/L Potassium (3.5-5.3) mmol/L Chloride (100-110) mmol/L Carbon Dioxide (23-29) mmol/L BUN (8-23) mg/dL Creatinine (0.6-1.3) mg/dL Est Cr Clr Drug Dosing mL/min Estimated GFR (MDRD) (>60) BUN/Creatinine Ratio (9-20) Glucose (80-116) mg/dL POC Glucose (80-116) mg/dL Lactic Acid 2.4 H (0.5-2.2) mmol/L Calcium (8.6-10.2) mg/dL Magnesium (1.8-2.5) mg/dL Total Bilirubin (0.1-1.3) mg/dL AST (5-27) IU/L ALT (14-26) IU/L Alkaline Phosphatase (56-112) IU/L Creatine Kinase (60-160) IU/L Troponin I (0.02-0.06) NG/ML B-Natriuretic Peptide (0-100) pg/mL Total Protein (6.0-8.0) g/dL Albumin (3.2-4.6) g/dL Globulin g/dL Albumin/Globulin Ratio Urine Color (YELLOW) Urine Appearance (CLEAR) Urine pH (5.0-6.5) Ur Specific [place] (1.010-1.025) Urine Protein (NEGATIVE) mg/dL Urine Glucose (UA) (NEGATIVE) mg/dL Urine Ketones (NEGATIVE) mg/dL Urine Occult Blood (NEGATIVE) Urine Nitrite (NEGATIVE) Urine Bilirubin (NEGATIVE) Urine Urobilinogen (NEGATIVE) mg/dL Ur Leukocyte Esterase (NEGATIVE) Urine RBC (0) Urine WBC (0) Ur Squamous Epith Cells (NS,R,O) Urine Bacteria (NS) Coarse Granular Casts (NS) 02/16/17 02/16/17 02/16/17 Range/Units 06:20 06:20 06:20 WBC 24.1 H (4.5-12.0) X10-3/uL RBC 3.58 L (4.30-5.75) x10(6)uL Hgb 8.0 L (11.5-15.5) g/dL Hct 25.4 L (30.0-51.3) % MCV 70.9 L (80-96) fL MCH 22.4 L (27.7-33.6) pg MCHC 31.6 L (32.2-35.4) g/dL RDW 17.2 H (11.5-15.5) % Plt Count 499 H (125-369) X10(3)uL MPV 9.1 (7.4-10.4) fL Add Manual Diff Yes Neutrophils % (Manual) 81 (46-82) % Band Neutrophils % (0-6) % Lymphocytes % (Manual) 15 (13-37) % Monocytes % (Manual) 4 (4-12) % Hypochromasia Few Poikilocytosis Few Anisocytosis Few Microcytosis Moderate H PT (8.7-11.1) INR (0.89-1.13) APTT (24.4-33.2) SECONDS D-Dimer, Quantitative (100-400) ng/mL Sodium 129 L (135-145) mmol/L Potassium 4.9 (3.5-5.3) mmol/L Chloride 101 (100-110) mmol/L Carbon Dioxide 20 L (23-29) mmol/L BUN 39 H (8-23) mg/dL Creatinine 2.2 H* (0.6-1.3) mg/dL Est Cr Clr Drug Dosing 29.47 mL/min Estimated GFR (MDRD) 29 L (>60) BUN/Creatinine Ratio 17.7 (9-20) Glucose 170 H D (80-116) mg/dL POC Glucose (80-116) mg/dL Lactic Acid (0.5-2.2) mmol/L Calcium 8.5 L (8.6-10.2) mg/dL Magnesium (1.8-2.5) mg/dL Total Bilirubin 0.4 (0.1-1.3) mg/dL AST 34 H D (5-27) IU/L ALT 17 D (14-26) IU/L Alkaline Phosphatase 165 H (56-112) IU/L Creatine Kinase (60-160) IU/L Troponin I 3.75 H* (0.02-0.06) NG/ML B-Natriuretic Peptide (0-100) pg/mL Total Protein 6.3 (6.0-8.0) g/dL Albumin 2.9 L (3.2-4.6) g/dL Globulin 3.4 g/dL Albumin/Globulin Ratio 0.9 Urine Color (YELLOW) Urine Appearance (CLEAR) Urine pH (5.0-6.5) Ur Specific [place] (1.010-1.025) Urine Protein (NEGATIVE) mg/dL Urine Glucose (UA) (NEGATIVE) mg/dL Urine Ketones (NEGATIVE) mg/dL Urine Occult Blood (NEGATIVE) Urine Nitrite (NEGATIVE) Urine Bilirubin (NEGATIVE) Urine Urobilinogen (NEGATIVE) mg/dL Ur Leukocyte Esterase (NEGATIVE) Urine RBC (0) Urine WBC (0) Ur Squamous Epith Cells (NS,R,O) Urine Bacteria (NS) Coarse Granular Casts (NS) 02/16/17 02/16/17 Range/Units 06:20 06:20 WBC (4.5-12.0) X10-3/uL RBC (4.30-5.75) x10(6)uL Hgb (11.5-15.5) g/dL Hct (30.0-51.3) % MCV (80-96) fL MCH (27.7-33.6) pg MCHC (32.2-35.4) g/dL RDW (11.5-15.5) % Plt Count (125-369) X10(3)uL MPV (7.4-10.4) fL Add Manual Diff Neutrophils % (Manual) (46-82) % Band Neutrophils % (0-6) % Lymphocytes % (Manual) (13-37) % Monocytes % (Manual) (4-12) % Hypochromasia Poikilocytosis Anisocytosis Microcytosis PT (8.7-11.1) INR (0.89-1.13) APTT 56.1 H (24.4-33.2) SECONDS D-Dimer, Quantitative (100-400) ng/mL Sodium (135-145) mmol/L Potassium (3.5-5.3) mmol/L Chloride (100-110) mmol/L Carbon Dioxide (23-29) mmol/L BUN (8-23) mg/dL Creatinine (0.6-1.3) mg/dL Est Cr Clr Drug Dosing mL/min Estimated GFR (MDRD) (>60) BUN/Creatinine Ratio (9-20) Glucose (80-116) mg/dL POC Glucose (80-116) mg/dL Lactic Acid (0.5-2.2) mmol/L Calcium (8.6-10.2) mg/dL Magnesium (1.8-2.5) mg/dL Total Bilirubin (0.1-1.3) mg/dL AST (5-27) IU/L ALT (14-26) IU/L Alkaline Phosphatase (56-112) IU/L Creatine Kinase (60-160) IU/L Troponin I (0.02-0.06) NG/ML B-Natriuretic Peptide 327 H (0-100) pg/mL Total Protein (6.0-8.0) g/dL Albumin (3.2-4.6) g/dL Globulin g/dL Albumin/Globulin Ratio Urine Color (YELLOW) Urine Appearance (CLEAR) Urine pH (5.0-6.5) Ur Specific [place] (1.010-1.025) Urine Protein (NEGATIVE) mg/dL Urine Glucose (UA) (NEGATIVE) mg/dL Urine Ketones (NEGATIVE) mg/dL Urine Occult Blood (NEGATIVE) Urine Nitrite (NEGATIVE) Urine Bilirubin (NEGATIVE) Urine Urobilinogen (NEGATIVE) mg/dL Ur Leukocyte Esterase (NEGATIVE) Urine RBC (0) Urine WBC (0) Ur Squamous Epith Cells (NS,R,O) Urine Bacteria (NS) Coarse Granular Casts (NS) [facility]os Results last 24 hrs: Microbiology 02/15/17 15:00 Stool Occult Blood (AMOS) - Final Stool / Feces NEGATIVE OCCULT BLOOD Med Orders - Current: Current Medications Hydrocodone Bitart/Acetaminophen ([place] 325-10 Mg) 1 tab PO Q4H [facility] Last Admin: 02/16/17 08:25 Dose: 1 tab Aspirin (Halfprin) 81 mg PO DAILY [facility] Last Admin: 02/16/17 08:57 Dose: 81 mg Atorvastatin Calcium (Lipitor) 10 mg PO BEDTIME [facility] Last Admin: 02/15/17 21:04 Dose: 10 mg Baclofen (Lioresal) 10 mg PO BID [facility] Last Admin: 02/15/17 21:04 Dose: 10 mg Calcium Carbonate (Calcium Carbonate/Vitamin D 1250 Mg-200 Unit) 1 tab PO BID [facility] Last Admin: 02/16/17 08:57 Dose: Not Given Docusate Sodium (Colace) 100 mg PO BID PRN PRN Reason: Constipation Last Admin: 02/14/17 23:03 Dose: 100 mg Famotidine (Pepcid) 20 mg PO BID [facility] Last Admin: 02/15/17 21:05 Dose: 20 mg Fluticasone Propionate (Flonase) 0 gm GORGE DAILY [facility] Last Admin: 02/16/17 08:57 Dose: Not Given Hydromorphone HCl (Dilaudid) 0.5 mg IVPUSH Q2H PRN PRN Reason: Pain (severe 7-10) Last Admin: 02/15/17 18:03 Dose: 0.5 mg Heparin Sodium/Dextrose (Heparin 25,000 Units In D5w 500 Ml) 25,000 units in 500 mls @ 20.16 mls/hr IV TITRATE TRAMAINE; 12 UNITS/KG/HR PRN Reason: Protocol Last Admin: 02/16/17 00:32 Dose: 12 units/kg/hr, 20.16 mls/hr Norepinephrine Bitartrate 4 mg (/ Dextrose/Water) 250 mls @ 7.5 mls/hr IV TITRATE TRAMAINE; 2 MCG/MIN PRN Reason: Protocol Last Titration: 02/16/17 08:37 Dose: 0 mcg/min, 0 mls/hr Sodium Chloride (Normal Saline) 1,000 mls @ 70 mls/hr IV ASDIRECTED TRAMAINE Lisinopril (Prinivil) 10 mg PO BEDTIME [facility] Last Admin: 02/15/17 21:05 Dose: 10 mg Loperamide HCl (Imodium) 4 mg PO QID PRN PRN Reason: Diarrhea Last Admin: 02/15/17 13:12 Dose: 4 mg Metoprolol Tartrate (Lopressor) 100 mg PO BID [facility] Last Admin: 02/16/17 08:58 Dose: Not Given Multivitamins/Minerals/Vitamin C (Tab-A-Lindsey) 1 tab PO DAILY [facility] Last Admin: 02/16/17 08:59 Dose: Not Given Omeprazole (Omeprazole) 40 mg PO DAILY@0600 [facility] Last Admin: 02/16/17 08:58 Dose: Not Given Ondansetron HCl (Zofran) 8 mg IV Q6H PRN PRN Reason: Nausea/Vomiting Sodium Chloride (Saline Flush) 10 ml FLUSH ASDIRECTED PRN PRN Reason: Keep Vein Open Last Admin: 02/16/17 00:31 Dose: 10 ml Sodium Chloride (Saline Flush) 10 ml FLUSH ASDIRECTED PRN PRN Reason: Keep Vein Open Tamsulosin HCl (Flomax) 0.4 mg PO BEDTIME [facility] Last Admin: 02/15/17 21:03 Dose: 0.4 mg Discontinued Medications Hydrocodone Bitart/Acetaminophen ([place] 325-5 Mg) 1 tab PO Q4H PRN PRN Reason: Pain Last Admin: 02/15/17 16:42 Dose: 1 tab Albuterol (Proventil Neb Soln) 2.5 mg NEB Q2H STA Stop: 02/15/17 00:10 Last Admin: 02/15/17 00:52 Dose: 2.5 mg Calcium Chloride (Calcium Chloride 10%) 1 gm IV ONETIME ONE Stop: 02/15/17 00:10 Last Admin: 02/15/17 00:43 Dose: 1 gm Diphenhydramine HCl (Benadryl) 25 mg IVPUSH ONETIME ONE Stop: 02/14/17 20:02 Last Admin: 02/14/17 20:07 Dose: 25 mg Heparin Sodium (Porcine) (Heparin Sodium) 5,000 units IVPUSH ONETIME ONE Stop: 02/15/17 23:29 Last Admin: 02/16/17 00:32 Dose: 5,000 units Levofloxacin/Dextrose 500 mg/ (Premix) 100 mls @ 100 mls/hr IV ONETIME ONE Stop: 02/14/17 22:46 Last Admin: 02/14/17 23:01 Dose: 100 mls/hr Sodium Chloride (Normal Saline) 250 mls @ 100 mls/hr IV ASDIRECTED [facility] Last Admin: 02/14/17 22:56 Dose: 100 mls/hr Sodium Chloride (Normal Saline) 1,000 mls @ 125 mls/hr IV ASDIRECTED [facility] Last Admin: 02/15/17 22:34 Dose: 125 mls/hr Sodium Chloride (Normal Saline) 1,000 mls @ 999 mls/hr IV .BOLUS ONE Stop: 02/15/17 22:44 Last Admin: 02/15/17 21:20 Dose: 999 mls/hr Vancomycin HCl 1,000 mg/ (Dextrose/Water) 250 mls @ 167 mls/hr IV ONETIME ONE Stop: 02/16/17 00:00 Last Admin: 02/16/17 01:11 Dose: Not Given Vancomycin HCl 1,500 mg/ (Sodium Chloride) 500 mls @ 333.333 mls/hr IV ONETIME ONE Stop: 02/16/17 00:29 Last Admin: 02/16/17 00:15 Dose: 333.333 mls/hr Methylprednisolone Sodium Succinate (Solu-Medrol) 125 mg IVPUSH ONETIME ONE Stop: 02/14/17 20:04 Last Admin: 02/14/17 20:07 Dose: 125 mg Metoprolol Tartrate (Lopressor) 100 mg PO BID [facility] Last Admin: 02/15/17 21:04 Dose: 100 mg Morphine Sulfate (Morphine) 4 mg IVPUSH ONETIME ONE Stop: 02/14/17 19:53 Last Admin: 02/14/17 19:56 Dose: 4 mg Nitroglycerin (Nitro-Bid 2%) 1 gm TOP ONETIME ONE Stop: 02/15/17 22:42 Last Admin: 02/15/17 23:30 Dose: Not Given Non-Formulary Medication (Levocetirizine Dihydrochloride [Xyzal]) 5 mg PO DAILY [facility] Sodium Polystyrene Sulfonate (Kayexalate) 45 gm PO NOW ONE Stop: 02/15/17 00:08 Last Admin: 02/15/17 00:43 Dose: 45 gm Tramadol HCl (Ultram) 50 mg PO Q6H [facility] - Exam General: alert, oriented, mild distress Neck: supple Lungs: Clear to auscultation, Normal respiratory effort, Decreased breath sounds Cardiovascular: Regular Rhythm, No Murmurs, Tachycardia Extremities: no edema - Problem List & Annotations (1) Microcytic anemia SNOMED Code(s): 745868693 Code(s): D50.9 - IRON DEFICIENCY ANEMIA, UNSPECIFIED Status: Acute Current Visit: Yes (2) Renal failure SNOMED Code(s): 84160674 Code(s): N19 - UNSPECIFIED KIDNEY FAILURE Status: Acute Current Visit: Yes Qualifiers: Renal failure chronicity: chronic Chronic kidney disease stage: stage 4 ( severe) Qualified Code(s): N18.4 - Chronic kidney disease, stage 4 (severe) (3) Dyspnea SNOMED Code(s): 910693215 Code(s): R06.00 - DYSPNEA, UNSPECIFIED Status: Acute Current Visit: Yes (4) Bladder CA in situ SNOMED Code(s): 45749011 Code(s): D09.0 - CARCINOMA IN SITU OF BLADDER Status: Acute Current Visit : Yes (5) Liver metastasis Status: Acute Current Visit: Yes (6) Palliative care status SNOMED Code(s): 726582255 Code(s): Z51.5 - ENCOUNTER FOR PALLIATIVE CARE Status: Acute Current Visit: Yes (7) Closed L1 vertebral fracture SNOMED Code(s): 114779141 Code(s): S32.019A - UNSP FRACTURE OF FIRST LUMBAR VERTEBRA, INIT FOR CLOS FX Status: Acute Current Visit: Yes Qualifiers: Encounter type: initial encounter Fracture morphology: other fracture Qualified Code(s): S32.018A - Other fracture of first lumbar vertebra, initial encounter for closed fracture (8) Fall SNOMED Code(s): 7215714, 435382788 Code(s): W19.XXXA - UNSPECIFIED FALL, INITIAL ENCOUNTER Status: Acute Current Visit: Yes Qualifiers: Encounter type: subsequent encounter Qualified Code(s): W19.XXXD - Unspecified fall, subsequent encounter (9) Hyponatremia SNOMED Code(s): 99415668 Code(s): E87.1 - HYPO-OSMOLALITY AND HYPONATREMIA Status: Acute Current Visit: Yes (10) Myocardial infarction acute SNOMED Code(s): 86641410 Code(s): I21.3 - ST ELEVATION (STEMI) MYOCARDIAL INFARCTION OF UNSP SITE Status: Acute Current Visit: Yes Qualifiers: Myocardial infarction ST status: non-ST elevation myocardial infarction Qualified Code(s): I21.4 - Non-ST elevation (NSTEMI) myocardial infarction - Problem List Review Problem List Initiated/Reviewed/Updated: Yes - My Orders Last 24 Hours: My Active Orders 02/15/17 09:22 EKG 12 Lead [EK] Routine 02/15/17 09:30 FERRITIN [REF] Routine IRON [REF] Routine RETIC AUTOMATED WITHOUT IRF [REF] Routine 02/15/17 12:13 Loperamide [Imodium] 4 mg PO QID PRN 02/15/17 12:16 Accu Check [Blood Glucose Check, Bedside] [RC] 0700,1700 02/15/17 20:00 Acetaminophen/HYDROcodone [[place] 325-10 MG] 1 tab PO Q4H 02/15/17 21:00 Baclofen [Lioresal] 10 mg PO BID Calcium Carbonate/Vitamin D3 [Calcium Carbonate/Vitamin D 1250 MG-200 Unit] 1 tab PO BID Famotidine [Pepcid] 20 mg PO BID Lisinopril [Prinivil] 10 mg PO BEDTIME Tamsulosin [Flomax] 0.4 mg PO BEDTIME atorvaSTATin [Lipitor] 10 mg PO BEDTIME 02/15/17 Dinner Consistent Carbohydrate Diet [DIET] 02/16/17 09:00 Aspirin [Halfprin] 81 mg PO DAILY Fluticasone Propionate [Flonase] 0 gm GORGE DAILY Metoprolol Tartrate [Lopressor] 100 mg PO BID Multivitamins [Tab-A-Lindsey] 1 tab PO DAILY Omeprazole 40 mg PO DAILY@0600 - Plan Plan:: 1. I called [address] Adhikari. Will see him in transfer. 2. Hold his Lopressor because his pressure has been low although it's improved. 3. Continue aspirin, heparin and hydrocodone. Otherwise n.p.o. 4. Transfer by ambulance.
--- NOTE | 2017-02-16 09:17 | PCM.DCSUM1 ---
Discharge Summary - Hospital Course Free Text/Narrative:: Hospital course-patient was admitted and started on Dilantin IV. Patient has lots of allergies to narcotics. He felt that he could take hydrocodone. This is for his low back which is the only thing is really complaining about. Hydrocodone 5 x 3 25 a started and it didn't help him increase it to 10 x 3 25 which is much better. In the evening he started having chest pain, tachycardia and hypotension. The doctor in house transferred to ICU put on vancomycin, levo fed drip, heparin. His initial troponin was 0.67 mg. In the morning was 3.75. Call for no doctor Dr. Adhikari. We'll transfer by self and the patient's chronic renal failure, bladder cancer. He is [facility] patient is very vague about being followed for his bladder cancer. There is liver metastases on the CT scan. His white count was very elevated therefore he was put on vancomycin. This morning it is improved but still elevated. No sign of infection identified. Brief History: This is a 76-year-old male patient states he was taking something out of the oven yesterday. And he slipped and fell back and hit his head. He says he does not remember for about 30 minutes. After that he had excruciating back pain. He called the ambulance and was brought to the ER. He was diagnosed l1 compression fracture. He also had renal failure, leukocytosis , hyponatremia and liver metastases on this CT. He states he has history of bladder cancer and is not being followed by anyone at this time. He states he has low back pain at 10/10. He has no leg pain, paresthesias or weakness. He states he's had low back and neck surgery in the past. - Discharge Data Discharge Date: 02/16/17 Discharge Disposition: DC/Tfer to Acute Hospital 02 Condition: Serious - Discharge Diagnosis/Problem(s) (1) Microcytic anemia SNOMED Code(s): 118098108 ICD Code: D50.9 - IRON DEFICIENCY ANEMIA, UNSPECIFIED Status: Acute Current Visit: Yes (2) Renal failure SNOMED Code(s): 39047889 ICD Code: N19 - UNSPECIFIED KIDNEY FAILURE Status: Acute Current Visit: Yes Qualifiers: Renal failure chronicity: chronic Chronic kidney disease stage: stage 4 ( severe) Qualified Code(s): N18.4 - Chronic kidney disease, stage 4 (severe) (3) Dyspnea SNOMED Code(s): 662776486 ICD Code: R06.00 - DYSPNEA, UNSPECIFIED Status: Acute Current Visit: Yes (4) Bladder CA in situ SNOMED Code(s): 04023942 ICD Code: D09.0 - CARCINOMA IN SITU OF BLADDER Status: Acute Current Visit: Yes (5) Liver metastasis Status: Acute Current Visit: Yes (6) Palliative care status SNOMED Code(s): 021392731 ICD Code: Z51.5 - ENCOUNTER FOR PALLIATIVE CARE Status: Acute Current Visit: Yes (7) Closed L1 vertebral fracture SNOMED Code(s): 477226571 ICD Code: S32.019A - UNSP FRACTURE OF FIRST LUMBAR VERTEBRA, INIT FOR CLOS FX Status: Acute Current Visit: Yes Qualifiers: Encounter type: initial encounter Fracture morphology: other fracture Qualified Code(s): S32.018A - Other fracture of first lumbar vertebra, initial encounter for closed fracture (8) Fall SNOMED Code(s): 9522234, 341492615 ICD Code: W19.XXXA - UNSPECIFIED FALL, INITIAL ENCOUNTER Status: Acute Current Visit: Yes Qualifiers: Encounter type: subsequent encounter Qualified Code(s): W19.XXXD - Unspecified fall, subsequent encounter (9) Hyponatremia SNOMED Code(s): 95917109 ICD Code: E87.1 - HYPO-OSMOLALITY AND HYPONATREMIA Status: Acute Current Visit: Yes (10) Myocardial infarction acute SNOMED Code(s): 60658536 ICD Code: I21.3 - ST ELEVATION (STEMI) MYOCARDIAL INFARCTION OF UNSP SITE Status: Acute Current Visit: Yes Qualifiers: Myocardial infarction ST status: non-ST elevation myocardial infarction Qualified Code(s): I21.4 - Non-ST elevation (NSTEMI) myocardial infarction - Patient Instructions Diet: NPO Activity: Bedrest Driving: Do Not Drive Showering/Bathing: May Shower Other/Special Instructions: 1. Transfer [facility] ambulance. - Discharge Plan Home Medications: Home Meds Aspirin [Adult Low Dose Aspirin EC] 81 mg PO DAILY 02/15/17 [History] Acetaminophen/HYDROcodone [Prosperity 325-10 MG] 1 tab PO Q4H #0 tablet 02/16/17 [Rx] Aspirin [Halfprin] 81 mg PO DAILY #0 tab.ec 02/16/17 [Rx] HYDROmorphone [Dilaudid] 0.5 mg IVPUSH Q2H PRN #0 sdv 02/16/17 [Rx] Forms: ED Department Discharge Referrals: PCP,None [Primary Care Provider] - - Discharge Summary/Plan Comment DC Time >30 min.: Yes (Seeing the patient, coordinating care with [facility]. Greater 30 minutes spent) - Patient Data Vitals - Most Recent: Last Vital Signs Temp 97.9 F 02/16/17 08:15 Pulse 112 H 02/16/17 08:46 Resp 20 02/16/17 08:30 BP 141/72 H 02/16/17 08:46 Pulse Ox 92 L 02/16/17 08:30 Weight - Most Recent: 185 lb 9.6 oz I&O - Last 24 hours: Intake & Output 02/15/17 02/16/17 02/16/17 22:59 06:59 14:59 Intake Total 2791 1369 Output Total 400 250 Balance 2391 1119 Lab Results - Last 24 hrs: Laboratory Results - last 24 hr 02/15/17 02/15/17 02/15/17 Range/Units 17:24 21:25 21:33 WBC 35.1 H* (4.5-12.0) X10-3/uL RBC 3.87 L (4.30-5.75) x10(6)uL Hgb 9.0 L (11.5-15.5) g/dL Hct 27.3 L (30.0-51.3) % MCV 70.6 L (80-96) fL MCH 23.1 L (27.7-33.6) pg MCHC 32.7 (32.2-35.4) g/dL RDW 16.8 H (11.5-15.5) % Plt Count 644 H (125-369) X10(3)uL MPV 8.9 (7.4-10.4) fL Add Manual Diff Yes Neutrophils % (Manual) 80 (46-82) % Band Neutrophils % 3 (0-6) % Lymphocytes % (Manual) 10 L (13-37) % Monocytes % (Manual) 7 (4-12) % Hypochromasia Poikilocytosis Anisocytosis Microcytosis PT (8.7-11.1) INR (0.89-1.13) APTT (24.4-33.2) SECONDS D-Dimer, Quantitative (100-400) ng/mL Sodium (135-145) mmol/L Potassium (3.5-5.3) mmol/L Chloride (100-110) mmol/L Carbon Dioxide (23-29) mmol/L BUN (8-23) mg/dL Creatinine (0.6-1.3) mg/dL Est Cr Clr Drug Dosing mL/min Estimated GFR (MDRD) (>60) BUN/Creatinine Ratio (9-20) Glucose (80-116) mg/dL POC Glucose 178 H (80-116) mg/dL Lactic Acid (0.5-2.2) mmol/L Calcium (8.6-10.2) mg/dL Magnesium (1.8-2.5) mg/dL Total Bilirubin (0.1-1.3) mg/dL AST (5-27) IU/L ALT (14-26) IU/L Alkaline Phosphatase (56-112) IU/L Creatine Kinase (60-160) IU/L Troponin I (0.02-0.06) NG/ML B-Natriuretic Peptide (0-100) pg/mL Total Protein (6.0-8.0) g/dL Albumin (3.2-4.6) g/dL Globulin g/dL Albumin/Globulin Ratio Urine Color Yellow (YELLOW) Urine Appearance Slightly cloudy (CLEAR) Urine pH 6.0 (5.0-6.5) Ur Specific [place] 1.015 (1.010-1.025) Urine Protein 100 H (NEGATIVE) mg/dL Urine Glucose (UA) 50 H (NEGATIVE) mg/dL Urine Ketones Negative (NEGATIVE) mg/dL Urine Occult Blood Large H (NEGATIVE) Urine Nitrite Negative (NEGATIVE) Urine Bilirubin Negative (NEGATIVE) Urine Urobilinogen Normal (NEGATIVE) mg/dL Ur Leukocyte Esterase Negative (NEGATIVE) Urine RBC 5-10 (0) Urine WBC 0-5 (0) Ur Squamous Epith Cells Rare (NS,R,O) Urine Bacteria Few H (NS) Coarse Granular Casts Few H (NS) 02/15/17 02/15/17 02/15/17 Range/Units 21:33 21:33 21:33 WBC (4.5-12.0) X10-3/uL RBC (4.30-5.75) x10(6)uL Hgb (11.5-15.5) g/dL Hct (30.0-51.3) % MCV (80-96) fL MCH (27.7-33.6) pg MCHC (32.2-35.4) g/dL RDW (11.5-15.5) % Plt Count (125-369) X10(3)uL MPV (7.4-10.4) fL Add Manual Diff Neutrophils % (Manual) (46-82) % Band Neutrophils % (0-6) % Lymphocytes % (Manual) (13-37) % Monocytes % (Manual) (4-12) % Hypochromasia Poikilocytosis Anisocytosis Microcytosis PT 12.0 H (8.7-11.1) INR 1.19 H (0.89-1.13) APTT (24.4-33.2) SECONDS D-Dimer, Quantitative (100-400) ng/mL Sodium 129 L (135-145) mmol/L Potassium 4.6 (3.5-5.3) mmol/L Chloride 101 (100-110) mmol/L Carbon Dioxide 16 L (23-29) mmol/L BUN 39 H (8-23) mg/dL Creatinine 2.3 H* (0.6-1.3) mg/dL Est Cr Clr Drug Dosing 28.19 mL/min Estimated GFR (MDRD) 28 L (>60) BUN/Creatinine Ratio 17.0 (9-20) Glucose 257 H (80-116) mg/dL POC Glucose (80-116) mg/dL Lactic Acid (0.5-2.2) mmol/L Calcium 9.1 (8.6-10.2) mg/dL Magnesium 1.3 L (1.8-2.5) mg/dL Total Bilirubin (0.1-1.3) mg/dL AST (5-27) IU/L ALT (14-26) IU/L Alkaline Phosphatase (56-112) IU/L Creatine Kinase 89 (60-160) IU/L Troponin I 0.67 H* (0.02-0.06) NG/ML B-Natriuretic Peptide (0-100) pg/mL Total Protein (6.0-8.0) g/dL Albumin (3.2-4.6) g/dL Globulin g/dL Albumin/Globulin Ratio Urine Color (YELLOW) Urine Appearance (CLEAR) Urine pH (5.0-6.5) Ur Specific [place] (1.010-1.025) Urine Protein (NEGATIVE) mg/dL Urine Glucose (UA) (NEGATIVE) mg/dL Urine Ketones (NEGATIVE) mg/dL Urine Occult Blood (NEGATIVE) Urine Nitrite (NEGATIVE) Urine Bilirubin (NEGATIVE) Urine Urobilinogen (NEGATIVE) mg/dL Ur Leukocyte Esterase (NEGATIVE) Urine RBC (0) Urine WBC (0) Ur Squamous Epith Cells (NS,R,O) Urine Bacteria (NS) Coarse Granular Casts (NS) 02/15/17 02/15/17 02/15/17 Range/Units 21:33 21:33 22:50 WBC (4.5-12.0) X10-3/uL RBC (4.30-5.75) x10(6)uL Hgb (11.5-15.5) g/dL Hct (30.0-51.3) % MCV (80-96) fL MCH (27.7-33.6) pg MCHC (32.2-35.4) g/dL RDW (11.5-15.5) % Plt Count (125-369) X10(3)uL MPV (7.4-10.4) fL Add Manual Diff Neutrophils % (Manual) (46-82) % Band Neutrophils % (0-6) % Lymphocytes % (Manual) (13-37) % Monocytes % (Manual) (4-12) % Hypochromasia Poikilocytosis Anisocytosis Microcytosis PT (8.7-11.1) INR (0.89-1.13) APTT 26.8 (24.4-33.2) SECONDS D-Dimer, Quantitative 2810 H (100-400) ng/mL Sodium (135-145) mmol/L Potassium (3.5-5.3) mmol/L Chloride (100-110) mmol/L Carbon Dioxide (23-29) mmol/L BUN (8-23) mg/dL Creatinine (0.6-1.3) mg/dL Est Cr Clr Drug Dosing mL/min Estimated GFR (MDRD) (>60) BUN/Creatinine Ratio (9-20) Glucose (80-116) mg/dL POC Glucose (80-116) mg/dL Lactic Acid 2.4 H (0.5-2.2) mmol/L Calcium (8.6-10.2) mg/dL Magnesium (1.8-2.5) mg/dL Total Bilirubin (0.1-1.3) mg/dL AST (5-27) IU/L ALT (14-26) IU/L Alkaline Phosphatase (56-112) IU/L Creatine Kinase (60-160) IU/L Troponin I (0.02-0.06) NG/ML B-Natriuretic Peptide (0-100) pg/mL Total Protein (6.0-8.0) g/dL Albumin (3.2-4.6) g/dL Globulin g/dL Albumin/Globulin Ratio Urine Color (YELLOW) Urine Appearance (CLEAR) Urine pH (5.0-6.5) Ur Specific [place] (1.010-1.025) Urine Protein (NEGATIVE) mg/dL Urine Glucose (UA) (NEGATIVE) mg/dL Urine Ketones (NEGATIVE) mg/dL Urine Occult Blood (NEGATIVE) Urine Nitrite (NEGATIVE) Urine Bilirubin (NEGATIVE) Urine Urobilinogen (NEGATIVE) mg/dL Ur Leukocyte Esterase (NEGATIVE) Urine RBC (0) Urine WBC (0) Ur Squamous Epith Cells (NS,R,O) Urine Bacteria (NS) Coarse Granular Casts (NS) 02/16/17 02/16/17 02/16/17 Range/Units 06:20 06:20 06:20 WBC 24.1 H (4.5-12.0) X10-3/uL RBC 3.58 L (4.30-5.75) x10(6)uL Hgb 8.0 L (11.5-15.5) g/dL Hct 25.4 L (30.0-51.3) % MCV 70.9 L (80-96) fL MCH 22.4 L (27.7-33.6) pg MCHC 31.6 L (32.2-35.4) g/dL RDW 17.2 H (11.5-15.5) % Plt Count 499 H (125-369) X10(3)uL MPV 9.1 (7.4-10.4) fL Add Manual Diff Yes Neutrophils % (Manual) 81 (46-82) % Band Neutrophils % (0-6) % Lymphocytes % (Manual) 15 (13-37) % Monocytes % (Manual) 4 (4-12) % Hypochromasia Few Poikilocytosis Few Anisocytosis Few Microcytosis Moderate H PT (8.7-11.1) INR (0.89-1.13) APTT (24.4-33.2) SECONDS D-Dimer, Quantitative (100-400) ng/mL Sodium 129 L (135-145) mmol/L Potassium 4.9 (3.5-5.3) mmol/L Chloride 101 (100-110) mmol/L Carbon Dioxide 20 L (23-29) mmol/L BUN 39 H (8-23) mg/dL Creatinine 2.2 H* (0.6-1.3) mg/dL Est Cr Clr Drug Dosing 29.47 mL/min Estimated GFR (MDRD) 29 L (>60) BUN/Creatinine Ratio 17.7 (9-20) Glucose 170 H D (80-116) mg/dL POC Glucose (80-116) mg/dL Lactic Acid (0.5-2.2) mmol/L Calcium 8.5 L (8.6-10.2) mg/dL Magnesium (1.8-2.5) mg/dL Total Bilirubin 0.4 (0.1-1.3) mg/dL AST 34 H D (5-27) IU/L ALT 17 D (14-26) IU/L Alkaline Phosphatase 165 H (56-112) IU/L Creatine Kinase (60-160) IU/L Troponin I 3.75 H* (0.02-0.06) NG/ML B-Natriuretic Peptide (0-100) pg/mL Total Protein 6.3 (6.0-8.0) g/dL Albumin 2.9 L (3.2-4.6) g/dL Globulin 3.4 g/dL Albumin/Globulin Ratio 0.9 Urine Color (YELLOW) Urine Appearance (CLEAR) Urine pH (5.0-6.5) Ur Specific [place] (1.010-1.025) Urine Protein (NEGATIVE) mg/dL Urine Glucose (UA) (NEGATIVE) mg/dL Urine Ketones (NEGATIVE) mg/dL Urine Occult Blood (NEGATIVE) Urine Nitrite (NEGATIVE) Urine Bilirubin (NEGATIVE) Urine Urobilinogen (NEGATIVE) mg/dL Ur Leukocyte Esterase (NEGATIVE) Urine RBC (0) Urine WBC (0) Ur Squamous Epith Cells (NS,R,O) Urine Bacteria (NS) Coarse Granular Casts (NS) 02/16/17 02/16/17 Range/Units 06:20 06:20 WBC (4.5-12.0) X10-3/uL RBC (4.30-5.75) x10(6)uL Hgb (11.5-15.5) g/dL Hct (30.0-51.3) % MCV (80-96) fL MCH (27.7-33.6) pg MCHC (32.2-35.4) g/dL RDW (11.5-15.5) % Plt Count (125-369) X10(3)uL MPV (7.4-10.4) fL Add Manual Diff Neutrophils % (Manual) (46-82) % Band Neutrophils % (0-6) % Lymphocytes % (Manual) (13-37) % Monocytes % (Manual) (4-12) % Hypochromasia Poikilocytosis Anisocytosis Microcytosis PT (8.7-11.1) INR (0.89-1.13) APTT 56.1 H (24.4-33.2) SECONDS D-Dimer, Quantitative (100-400) ng/mL Sodium (135-145) mmol/L Potassium (3.5-5.3) mmol/L Chloride (100-110) mmol/L Carbon Dioxide (23-29) mmol/L BUN (8-23) mg/dL Creatinine (0.6-1.3) mg/dL Est Cr Clr Drug Dosing mL/min Estimated GFR (MDRD) (>60) BUN/Creatinine Ratio (9-20) Glucose (80-116) mg/dL POC Glucose (80-116) mg/dL Lactic Acid (0.5-2.2) mmol/L Calcium (8.6-10.2) mg/dL Magnesium (1.8-2.5) mg/dL Total Bilirubin (0.1-1.3) mg/dL AST (5-27) IU/L ALT (14-26) IU/L Alkaline Phosphatase (56-112) IU/L Creatine Kinase (60-160) IU/L Troponin I (0.02-0.06) NG/ML B-Natriuretic Peptide 327 H (0-100) pg/mL Total Protein (6.0-8.0) g/dL Albumin (3.2-4.6) g/dL Globulin g/dL Albumin/Globulin Ratio Urine Color (YELLOW) Urine Appearance (CLEAR) Urine pH (5.0-6.5) Ur Specific [place] (1.010-1.025) Urine Protein (NEGATIVE) mg/dL Urine Glucose (UA) (NEGATIVE) mg/dL Urine Ketones (NEGATIVE) mg/dL Urine Occult Blood (NEGATIVE) Urine Nitrite (NEGATIVE) Urine Bilirubin (NEGATIVE) Urine Urobilinogen (NEGATIVE) mg/dL Ur Leukocyte Esterase (NEGATIVE) Urine RBC (0) Urine WBC (0) Ur Squamous Epith Cells (NS,R,O) Urine Bacteria (NS) Coarse Granular Casts (NS) [facility] Results - Last 24 hrs: Microbiology 02/15/17 15:00 Stool Occult Blood ([facility]) - Final Stool / Feces NEGATIVE OCCULT BLOOD Med Orders - Current: Current Medications Hydrocodone Bitart/Acetaminophen (Prosperity 325-10 Mg) 1 tab PO Q4H [facility] Last Admin: 02/16/17 08:25 Dose: 1 tab Aspirin (Halfprin) 81 mg PO DAILY [facility] Last Admin: 02/16/17 08:57 Dose: 81 mg Atorvastatin Calcium (Lipitor) 10 mg PO BEDTIME [facility] Last Admin: 02/15/17 21:04 Dose: 10 mg Baclofen (Lioresal) 10 mg PO BID [facility] Last Admin: 02/15/17 21:04 Dose: 10 mg Calcium Carbonate (Calcium Carbonate/Vitamin D 1250 Mg-200 Unit) 1 tab PO BID [facility] Last Admin: 02/16/17 08:57 Dose: Not Given Docusate Sodium (Colace) 100 mg PO BID PRN PRN Reason: Constipation Last Admin: 02/14/17 23:03 Dose: 100 mg Famotidine (Pepcid) 20 mg PO BID [facility] Last Admin: 02/15/17 21:05 Dose: 20 mg Fluticasone Propionate (Flonase) 0 gm GORGE DAILY [facility] Last Admin: 02/16/17 08:57 Dose: Not Given Hydromorphone HCl (Dilaudid) 0.5 mg IVPUSH Q2H PRN PRN Reason: Pain (severe 7-10) Last Admin: 02/15/17 18:03 Dose: 0.5 mg Heparin Sodium/Dextrose (Heparin 25,000 Units In D5w 500 Ml) 25,000 units in 500 mls @ 20.16 mls/hr IV TITRATE TRAMAINE; 12 UNITS/KG/HR PRN Reason: Protocol Last Admin: 02/16/17 00:32 Dose: 12 units/kg/hr, 20.16 mls/hr Norepinephrine Bitartrate 4 mg (/ Dextrose/Water) 250 mls @ 7.5 mls/hr IV TITRATE TRAMAINE; 2 MCG/MIN PRN Reason: Protocol Last Titration: 02/16/17 08:37 Dose: 0 mcg/min, 0 mls/hr Sodium Chloride (Normal Saline) 1,000 mls @ 70 mls/hr IV ASDIRECTED [facility] Lisinopril (Prinivil) 10 mg PO BEDTIME [facility] Last Admin: 02/15/17 21:05 Dose: 10 mg Loperamide HCl (Imodium) 4 mg PO QID PRN PRN Reason: Diarrhea Last Admin: 02/15/17 13:12 Dose: 4 mg Metoprolol Tartrate (Lopressor) 100 mg PO BID [facility] Last Admin: 02/16/17 08:58 Dose: Not Given Multivitamins/Minerals/Vitamin C (Tab-A-Lindsey) 1 tab PO DAILY [facility] Last Admin: 02/16/17 08:59 Dose: Not Given Omeprazole (Omeprazole) 40 mg PO DAILY@0600 [facility] Last Admin: 02/16/17 08:58 Dose: Not Given Ondansetron HCl (Zofran) 8 mg IV Q6H PRN PRN Reason: Nausea/Vomiting Sodium Chloride (Saline Flush) 10 ml FLUSH ASDIRECTED PRN PRN Reason: Keep Vein Open Last Admin: 02/16/17 00:31 Dose: 10 ml Sodium Chloride (Saline Flush) 10 ml FLUSH ASDIRECTED PRN PRN Reason: Keep Vein Open Tamsulosin HCl (Flomax) 0.4 mg PO BEDTIME [facility] Last Admin: 02/15/17 21:03 Dose: 0.4 mg Discontinued Medications Hydrocodone Bitart/Acetaminophen (Prosperity 325-5 Mg) 1 tab PO Q4H PRN PRN Reason: Pain Last Admin: 02/15/17 16:42 Dose: 1 tab Albuterol (Proventil Neb Soln) 2.5 mg NEB Q2H STA Stop: 02/15/17 00:10 Last Admin: 02/15/17 00:52 Dose: 2.5 mg Calcium Chloride (Calcium Chloride 10%) 1 gm IV ONETIME ONE Stop: 02/15/17 00:10 Last Admin: 02/15/17 00:43 Dose: 1 gm Diphenhydramine HCl (Benadryl) 25 mg IVPUSH ONETIME ONE Stop: 02/14/17 20:02 Last Admin: 02/14/17 20:07 Dose: 25 mg Heparin Sodium (Porcine) (Heparin Sodium) 5,000 units IVPUSH ONETIME ONE Stop: 02/15/17 23:29 Last Admin: 02/16/17 00:32 Dose: 5,000 units Levofloxacin/Dextrose 500 mg/ (Premix) 100 mls @ 100 mls/hr IV ONETIME ONE Stop: 02/14/17 22:46 Last Admin: 02/14/17 23:01 Dose: 100 mls/hr Sodium Chloride (Normal Saline) 250 mls @ 100 mls/hr IV ASDIRECTED [facility] Last Admin: 02/14/17 22:56 Dose: 100 mls/hr Sodium Chloride (Normal Saline) 1,000 mls @ 125 mls/hr IV ASDIRECTED [facility] Last Admin: 02/15/17 22:34 Dose: 125 mls/hr Sodium Chloride (Normal Saline) 1,000 mls @ 999 mls/hr IV .BOLUS ONE Stop: 02/15/17 22:44 Last Admin: 02/15/17 21:20 Dose: 999 mls/hr Vancomycin HCl 1,000 mg/ (Dextrose/Water) 250 mls @ 167 mls/hr IV ONETIME ONE Stop: 02/16/17 00:00 Last Admin: 02/16/17 01:11 Dose: Not Given Vancomycin HCl 1,500 mg/ (Sodium Chloride) 500 mls @ 333.333 mls/hr IV ONETIME ONE Stop: 02/16/17 00:29 Last Admin: 02/16/17 00:15 Dose: 333.333 mls/hr Methylprednisolone Sodium Succinate (Solu-Medrol) 125 mg IVPUSH ONETIME ONE Stop: 02/14/17 20:04 Last Admin: 02/14/17 20:07 Dose: 125 mg Metoprolol Tartrate (Lopressor) 100 mg PO BID [facility] Last Admin: 02/15/17 21:04 Dose: 100 mg Morphine Sulfate (Morphine) 4 mg IVPUSH ONETIME ONE Stop: 02/14/17 19:53 Last Admin: 02/14/17 19:56 Dose: 4 mg Nitroglycerin (Nitro-Bid 2%) 1 gm TOP ONETIME ONE Stop: 02/15/17 22:42 Last Admin: 02/15/17 23:30 Dose: Not Given Non-Formulary Medication (Levocetirizine Dihydrochloride [Xyzal]) 5 mg PO DAILY [facility] Sodium Polystyrene Sulfonate (Kayexalate) 45 gm PO NOW ONE Stop: 02/15/17 00:08 Last Admin: 02/15/17 00:43 Dose: 45 gm Tramadol HCl (Ultram) 50 mg PO Q6H [facility] *Q Meaningful Use (DIS) - VTE *Q VTE Criteria *Q: - Stroke *Q Stroke Criteria *Q: - AMI *Q AMI Criteria *Q:
[2017-02-16 11:36] VITALS: BP 105/58
[2017-02-16] MEDS: Baclofen 10 MG Tab PO SCH (11:39)
[2017-02-16] MEDS: Famotidine 20 MG Tab PO SCH (11:40)
== END 2017-02-16 10:38 | DRG 551 ==
LOC: FB.ED 18:27 → FB.MS 21:39 → UNDOADMIN 21:39 → FB.ICU 02-15 23:00
PROVIDERS: ADMIT Emergency Medicine; ATTEND Family Medicine
DX: S32.018A Other fracture of first lumbar vertebra, initial encounter for closed fracture (principal); I21.4 Non-ST elevation (NSTEMI) myocardial infarction; N18.4 Chronic kidney disease, stage 4 (severe); E87.1 Hypo-osmolality and hyponatremia; C78.7 Secondary malignant neoplasm of liver and intrahepatic bile duct; S09.90XA Unspecified injury of head, initial encounter; E11.22 Type 2 diabetes mellitus with diabetic chronic kidney disease; I48.91 Unspecified atrial fibrillation; I12.9 Hypertensive chronic kidney disease with stage 1 through stage 4 chronic kidney disease, or unspecified chronic kidney disease; W01.0XXA Fall on same level from slipping, tripping and stumbling without subsequent striking against object, initial encounter; Y92.009 Unspecified place in unspecified non-institutional (private) residence as the place of occurrence of the external cause; Y93.G3 Activity, cooking and baking; D50.9 Iron deficiency anemia, unspecified; Z87.891 Personal history of nicotine dependence; R06.00 Dyspnea, unspecified; E87.5 Hyperkalemia; E83.42 Hypomagnesemia; D72.829 Elevated white blood cell count, unspecified; I25.10 Atherosclerotic heart disease of native coronary artery without angina pectoris; Z95.1 Presence of aortocoronary bypass graft; K21.9 Gastro-esophageal reflux disease without esophagitis; Z85.51 Personal history of malignant neoplasm of bladder; M19.90 Unspecified osteoarthritis, unspecified site; H91.90 Unspecified hearing loss, unspecified ear; Z79.82 Long term (current) use of aspirin; Z79.01 Long term (current) use of anticoagulants; Z79.84 Long term (current) use of oral hypoglycemic drugs; Z91.041 Radiographic dye allergy status; Z88.5 Allergy status to narcotic agent; Z88.0 Allergy status to penicillin; Z88.2 Allergy status to sulfonamides; Z88.7 Allergy status to serum and vaccine; Z88.8 Allergy status to other drugs, medicaments and biological substances
CPT/HCPCS: 36415; 70450; 71250; 72125; 74176; 80048; 81001; 83605; 85025; 85610; 87040 ×2; 96374; 96375; 99285; J1200; J2270; J2930; J7050 ×2; 80053; 82272; 82550; 82728; 82962; 83540; 83735; 83880; 84484; 85045; 85379; 85730; 93005; A9270-GY; J1170; J1644; J1956; J3370; J7040; J7060

== ENCOUNTER 2017-04-25 17:26 | Inpatient (IN) | payer MEDICARE ==
[2017-04-25] MEDS ORDERED: Sodium Chloride 0.9% 1,000 ML IV ONE (18:41)
--- NOTE | 2017-04-25 18:43 | EDM.PDOC ---
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 As the pt arriver her in the ed, he was responding to pain only, not to voice. His r pupild was pinpoint, not responding to light. Left pupil was PEERL. GAG was present. Neck was supple, no external head injury. BP was 78/[address] head and c spine were performed which did both not show any acute changes, no bleed. Family was informed but will not see his/her DAD due to previous "family issues" . Onset: Unknown/Unsure Onset Date: 04/25/17 Onset Time: 11:00 Duration: Hour(s): Location: Reports: Generalized - Related Data Allergies Allergy/AdvReac Type Severity Reaction Status Date / Time Barbiturates Allergy Cannot Verified 04/25/17 19:46 Remember codeine Allergy Cannot Verified 04/25/17 19:46 Remember cortisone [Cortisone] Allergy Cannot Verified 04/25/17 19:46 Remember gabapentin Allergy UNKNOWN Verified 04/25/17 19:46 iodine Allergy Cannot Verified 04/25/17 19:46 Remember meperidine HCl [From Demerol] Allergy Cannot Verified 04/25/17 19:46 Remember morphine Allergy Cannot Verified 04/25/17 19:46 Remember Penicillins Allergy Cannot Verified 04/25/17 19:46 Remember Sulfa (Sulfonamide Allergy Cannot Verified 04/25/17 19:46 Antibiotics) Remember Tetanus Vaccines and Toxoid Allergy Cannot Verified 04/25/17 19:46 [Tetanus Vaccines & Toxoid] Remember tramadol Allergy Cannot Verified 04/25/17 19:46 Remember opti-raydye Allergy Cannot Uncoded 07/06/16 15:09 Remember Home Meds: Home Meds Aspirin [Adult Low Dose Aspirin EC] 81 mg PO DAILY 02/15/17 [History] Acetaminophen [Tylenol] 650 mg PO BID 04/25/17 [History] Acetaminophen [Tylenol] 650 mg PO Q4HR PRN 04/25/17 [History] Baclofen 5 mg PO BID 04/25/17 [History] Bisacodyl [Dulcolax] 1 supp RECTAL ASDIRECTED PRN 04/25/17 [History] Carvedilol 1 tab PO BID 04/25/17 [History] Dextrose 50% in Water [Dextrose 50%-Water] 1 dose IV ASDIRECTED PRN 04/25/17 [ History] Dextrose [Glutose 15] 15 gm PO ASDIRECTED PRN 04/25/17 [History] Emollient [Vanicream] 1 gm TOP BID 04/25/17 [History] Ferrous Sulfate 324 mg PO BID 04/25/17 [History] Glucagon,Human Recombinant [Glucagon Emergency Kit] 1 mg IJ ASDIRECTED PRN 04/25 [History] Levocetirizine Dihydrochloride [Xyzal] 5 mg PO DAILY 04/25/17 [History] Loperamide [Imodium] 2 mg PO ASDIRECTED PRN 04/25/17 [History] Magnesium Hydroxide [Milk of Magnesia] 400 mg PO ASDIRECTED PRN 04/25/17 [ History] Melatonin 1 tab PO DAILY PRN 04/25/17 [History] Pantoprazole Sodium [Protonix] 40 mg PO DAILY 04/25/17 [History] Pregabalin [Lyrica] 50 mg PO BID 04/25/17 [History] Tamsulosin HCl [Flomax] 0.4 mg PO DAILY 04/25/17 [History] atorvaSTATin Calcium [Atorvastatin Calcium] 1 tab PO DAILY 04/25/17 [History] guaiFENesin [Robitussin] 100 mg PO ASDIRECTED PRN 04/25/17 [History] Past Medical History HEENT History: Reports: Hard of Hearing Cardiovascular History: Reports: Afib, CAD, Hypertension, SOB on Exertion Respiratory History: Reports: SOB Gastrointestinal History: Reports: GERD Genitourinary History: Reports: Other (See Below) Other Genitourinary History: CHRONIC KIDNEY DISEASE Musculoskeletal History: Reports: Other (See Below) Other Musculoskeletal History: DJD Endocrine/Metabolic History: Reports: Diabetes, Type II Oncologic (Cancer) History: Reports: Bladder Social & Family History - Tobacco Use Smoking Status *Q: Former Smoker Years of Tobacco use: 5 Used Tobacco, but Quit: Yes Month Tobacco Last Used: unknown Second Hand Smoke Exposure: No - Caffeine Use Caffeine Use: Reports: Coffee, Soda - Alcohol Use Days Per Week of Alcohol Use: 0 - Recreational Drug Use Recreational Drug Use: No ED ROS GENERAL - Review of Systems Review Of Systems: Unable To Obtain ED EXAM, NEURO - Physical Exam Exam: See Below Exam Limited By: Altered Mental Status General Appearance: Obtunded, Moderate Distress, Cachetic Eye Exam: Right Eye: Other (Right pupil: Pinpoint (old) Left pupil: RERRL) Ears: Normal External Exam Nose: Normal Inspection Throat/Mouth: Other (Pos GAG reflex,dry mucosal membrane) Head Exam: Atraumatic, Normocephalic Neck: Normal Inspection, Supple Respiratory/Chest: Decreased Breath Sounds Cardiovascular: Normal Peripheral Pulses, Regular Rate, Rhythm, No Edema GI/Abdominal: Normal Bowel Sounds, Soft, Non-Tender (Male) Exam: Deferred Rectal (Males) Exam: Deferred Neurological: Withdraws to Pain Back Exam: Normal Inspection Extremities: Normal Inspection, Pallor Psychiatric: Flat Affect Skin Exam: Pallor EKG INTERPRETATION EKG Date: 04/25/17 Time: 19:10 Rhythm: NSR Rate (Beats/Min): 60 [place]: Normal P-Wave: Present QRS: Normal ST-T: Normal QT: Normal Comparison: NA - No Prior EKG Course - Vital Signs Text/Narrative:: 76 years old w m, residing in the [place], came to the a [place] hours [facility]. As the pt arriver her in the ed, he was responding to pain only, not to voice. His r pupild was pinpoint (old?), not responding to light. Left pupil was PEERL. GAG was present. Neck was supple, no external head injury. BP was 78/[address] head and c spine were performed which did both not show any acute changes, no bleed. Family was informed but will not see his/her DAD due to previous "family issues". PE: Somnolent 76 y.o.w.m with septic picture Labs: CBC WBC 23K HGB 10.1, INR 1.2 BUN 72 CR 3.1 Lactic acid 2.1 Na 129 K 4.1 BNP 325 Glc 126 UA pos fro UTI with hematuria. Troponin: 0.01 CK 59. Imaging: CXR port: R and left lung nodules, official report is pending. ECG: NSR with a rate of 60 bpm 6.32 pm Called his son Jayden Noel: Does not want to see his Dad, DNR/DNI?? Impression: Urosepsis (UA pos for UTI, WBC 23K), Hypotension, lethargy, Dehydration. Renal Insufficiency, Full Code Tx: NS. Levoquin Plan: Admit ti ICU Last Recorded V/S: Last Vital Signs Temp 37.1 C 04/26/17 06:00 Pulse 72 04/26/17 06:00 Resp 16 04/26/17 06:00 BP 103/42 L 04/26/17 06:00 Pulse Ox 95 04/26/17 06:00 - Orders/Labs/Meds Orders: Active Orders 24 hr Category Date Time Status EKG Documentation Completion [RC] ASDIRECTED Care 04/25/17 19:09 Active Insert Urinary Catheter [OM.PC] Q24H Care 04/25/17 18:30 Ordered Urinary Catheter Assessment [RC] QSHIFT Care 04/25/17 18:29 Active CXR [Chest 1V Frontal] [CR] Stat Exams 04/25/17 18:35 Taken Cervical Spine wo Cont [CT] Stat Exams 04/25/17 17:31 Taken Head wo Cont [CT] Stat Exams 04/25/17 17:31 Ordered CULTURE BLOOD [BC] Urgent Lab 04/25/17 18:35 Received CULTURE BLOOD [BC] Urgent Lab 04/25/17 18:40 Received Blood Culture x2 Reflex Set [OM.PC] Urgent Oth 04/25/17 18:29 Ordered EKG 12 Lead [EK] Routine Ther 04/25/17 19:09 Ordered Medication Orders Ondansetron HCl (Zofran) 4 mg IV Q4H PRN PRN Reason: Nausea/Vomiting Sodium Chloride (Saline Flush) 10 ml FLUSH ASDIRECTED PRN PRN Reason: Keep Vein Open Last Admin: 04/25/17 21:44 Dose: 10 ml Labs: Laboratory Tests 04/25/17 04/25/17 04/25/17 Range/Units 17:50 17:50 17:50 WBC 23.1 H (4.5-12.0) X10-3/uL RBC 4.48 (4.30-5.75) x10(6)uL Hgb 10.1 L (11.5-15.5) g/dL Hct 31.7 (30.0-51.3) % MCV 70.7 L (80-96) fL MCH 22.6 L (27.7-33.6) pg MCHC 31.9 L (32.2-35.4) g/dL RDW 18.6 H (11.5-15.5) % Plt Count 407 H (125-369) X10(3)uL MPV 8.6 (7.4-10.4) fL Add Manual Diff Yes Neutrophils % (Manual) 79 (46-82) % Band Neutrophils % 5 (0-6) % Lymphocytes % (Manual) 8 L (13-37) % Monocytes % (Manual) 8 (4-12) % Hypochromasia Few Anisocytosis Few Microcytosis Moderate H PT 13.1 H (8.7-11.1) INR 1.29 H (0.89-1.13) Sodium 129 L (135-145) mmol/L Potassium 5.3 (3.5-5.3) mmol/L Chloride 96 L (100-110) mmol/L Carbon Dioxide 22 L (23-29) mmol/L BUN 72 H D (8-23) mg/dL Creatinine 3.1 H* (0.6-1.3) mg/dL Est Cr Clr Drug Dosing TNP Estimated GFR (MDRD) 20 L (>60) BUN/Creatinine Ratio 23.2 H (9-20) Glucose 144 H (80-116) mg/dL Lactic Acid (0.5-2.2) mmol/L Calcium 8.9 (8.6-10.2) mg/dL Creatine Kinase (60-160) IU/L Troponin I (0.02-0.06) NG/ML B-Natriuretic Peptide (0-100) pg/mL Urine Color (YELLOW) Urine Appearance (CLEAR) Urine pH (5.0-6.5) Ur Specific [place] (1.010-1.025) Urine Protein (NEGATIVE) mg/dL Urine Glucose (UA) (NEGATIVE) mg/dL Urine Ketones (NEGATIVE) mg/dL Urine Occult Blood (NEGATIVE) Urine Nitrite (NEGATIVE) Urine Bilirubin (NEGATIVE) Urine Urobilinogen (NEGATIVE) mg/dL Ur Leukocyte Esterase (NEGATIVE) Urine RBC (0) Urine WBC (0) Ur Squamous Epith Cells (NS,R,O) Urine Bacteria (NS) 04/25/17 04/25/17 04/25/17 Range/Units 17:50 17:50 17:50 WBC (4.5-12.0) X10-3/uL RBC (4.30-5.75) x10(6)uL Hgb (11.5-15.5) g/dL Hct (30.0-51.3) % MCV (80-96) fL MCH (27.7-33.6) pg MCHC (32.2-35.4) g/dL RDW (11.5-15.5) % Plt Count (125-369) X10(3)uL MPV (7.4-10.4) fL Add Manual Diff Neutrophils % (Manual) (46-82) % Band Neutrophils % (0-6) % Lymphocytes % (Manual) (13-37) % Monocytes % (Manual) (4-12) % Hypochromasia Anisocytosis Microcytosis PT (8.7-11.1) INR (0.89-1.13) Sodium (135-145) mmol/L Potassium (3.5-5.3) mmol/L Chloride (100-110) mmol/L Carbon Dioxide (23-29) mmol/L BUN (8-23) mg/dL Creatinine (0.6-1.3) mg/dL Est Cr Clr Drug Dosing Estimated GFR (MDRD) (>60) BUN/Creatinine Ratio (9-20) Glucose (80-116) mg/dL Lactic Acid 2.1 (0.5-2.2) mmol/L Calcium (8.6-10.2) mg/dL Creatine Kinase 59 L (60-160) IU/L Troponin I (0.02-0.06) NG/ML B-Natriuretic Peptide 383 H (0-100) pg/mL Urine Color (YELLOW) Urine Appearance (CLEAR) Urine pH (5.0-6.5) Ur Specific [place] (1.010-1.025) Urine Protein (NEGATIVE) mg/dL Urine Glucose (UA) (NEGATIVE) mg/dL Urine Ketones (NEGATIVE) mg/dL Urine Occult Blood (NEGATIVE) Urine Nitrite (NEGATIVE) Urine Bilirubin (NEGATIVE) Urine Urobilinogen (NEGATIVE) mg/dL Ur Leukocyte Esterase (NEGATIVE) Urine RBC (0) Urine WBC (0) Ur Squamous Epith Cells (NS,R,O) Urine Bacteria (NS) 04/25/17 04/25/17 Range/Units 17:50 18:52 WBC (4.5-12.0) X10-3/uL RBC (4.30-5.75) x10(6)uL Hgb (11.5-15.5) g/dL Hct (30.0-51.3) % MCV (80-96) fL MCH (27.7-33.6) pg MCHC (32.2-35.4) g/dL RDW (11.5-15.5) % Plt Count (125-369) X10(3)uL MPV (7.4-10.4) fL Add Manual Diff Neutrophils % (Manual) (46-82) % Band Neutrophils % (0-6) % Lymphocytes % (Manual) (13-37) % Monocytes % (Manual) (4-12) % Hypochromasia Anisocytosis Microcytosis PT (8.7-11.1) INR (0.89-1.13) Sodium (135-145) mmol/L Potassium (3.5-5.3) mmol/L Chloride (100-110) mmol/L Carbon Dioxide (23-29) mmol/L BUN (8-23) mg/dL Creatinine (0.6-1.3) mg/dL Est Cr Clr Drug Dosing Estimated GFR (MDRD) (>60) BUN/Creatinine Ratio (9-20) Glucose (80-116) mg/dL Lactic Acid (0.5-2.2) mmol/L Calcium (8.6-10.2) mg/dL Creatine Kinase (60-160) IU/L Troponin I < 0.01 L (0.02-0.06) NG/ML B-Natriuretic Peptide (0-100) pg/mL Urine Color Yellow (YELLOW) Urine Appearance Slightly cloudy (CLEAR) Urine pH 5.0 (5.0-6.5) Ur Specific [place] 1.025 (1.010-1.025) Urine Protein 100 H (NEGATIVE) mg/dL Urine Glucose (UA) Normal (NEGATIVE) mg/dL Urine Ketones Negative (NEGATIVE) mg/dL Urine Occult Blood Large H (NEGATIVE) Urine Nitrite Negative (NEGATIVE) Urine Bilirubin Small H (NEGATIVE) Urine Urobilinogen Normal (NEGATIVE) mg/dL Ur Leukocyte Esterase Large H (NEGATIVE) Urine RBC >100 H (0) Urine WBC >100 H (0) Ur Squamous Epith Cells Few H (NS,R,O) Urine Bacteria Many H (NS) Meds: Medications Generic Name Dose Route Start Last Admin Trade Name Freq PRN Reason Stop Dose Admin Ondansetron HCl 4 mg 04/25/17 19:54 Zofran IV Q4H PRN Nausea/Vomiting Sodium Chloride 10 ml 04/25/17 19:54 04/25/17 21:44 Saline Flush FLUSH 10 ml ASDIRECTED PRN Administration Keep Vein Open Discontinued Medications Generic Name Dose Route Start Last Admin Trade Name Freq PRN Reason Stop Dose Admin Sodium Chloride 1,000 mls @ 999 mls/hr 04/25/17 18:41 04/25/17 19:07 Normal Saline IV 04/25/17 19:41 999 mls/hr .BOLUS ONE Administration Levofloxacin/Dextrose 750 mg/ 150 mls @ 100 mls/hr 04/25/17 19:09 04/25/17 19 :19 Premix IV 04/25/17 20:38 100 mls/hr ONETIME ONE Administration Departure - Departure Time of Disposition: 19:50 Disposition: Admitted As Inpatient 64 Condition: Fair Clinical Impression: Fall (on)(from) incline, initial encounter Sepsis Qualifiers: Sepsis type: sepsis due to unspecified organism Qualified Code(s): A41.9 - Sepsis, unspecified organism Mental status change Qualifiers: Altered mental status type: somnolence Qualified Code(s): R40.0 - Somnolence - Discharge Information - My Orders Last 24 Hours: My Active Orders 04/25/17 17:31 Cervical Spine wo Cont [CT] Stat Head wo Cont [CT] Stat 04/25/17 18:29 Urinary Catheter Assessment [RC] QSHIFT Blood Culture x2 Reflex Set [OM.PC] Urgent 04/25/17 18:30 Insert Urinary Catheter [OM.PC] Q24H 04/25/17 18:35 CXR [Chest 1V Frontal] [CR] Stat CULTURE BLOOD [BC] Urgent 04/25/17 18:40 CULTURE BLOOD [BC] Urgent 04/25/17 19:09 EKG Documentation Completion [RC] ASDIRECTED EKG 12 Lead [EK] Routine - Assessment/Plan Last 24 Hours: My Active Orders 04/25/17 17:31 Cervical Spine wo Cont [CT] Stat Head wo Cont [CT] Stat 04/25/17 18:29 Urinary Catheter Assessment [RC] QSHIFT Blood Culture x2 Reflex Set [OM.PC] Urgent 04/25/17 18:30 Insert Urinary Catheter [OM.PC] Q24H 04/25/17 18:35 CXR [Chest 1V Frontal] [CR] Stat CULTURE BLOOD [BC] Urgent 04/25/17 18:40 CULTURE BLOOD [BC] Urgent 04/25/17 19:09 EKG Documentation Completion [RC] ASDIRECTED EKG 12 Lead [EK] Routine
[2017-04-25] MEDS ORDERED: Levofloxacin/Dextrose 5%-Water 750 MG in Premix Bag 1 BAG IV ONE (19:09)
[2017-04-25] MEDS ORDERED: Ondansetron 4 MG/2 ML SDV IV PRN (19:54)
[2017-04-25] MEDS: Sodium Chloride 0.9% 10 ML Syringe FLUSH PRN (21:44)
[2017-04-26] MEDS ORDERED: Melatonin 3 MG Tab PO PRN (08:41)
[2017-04-26] MEDS: Sodium Chloride 0.9% 1,000 ML IV SCH ×2 (09:08→23:25)
[2017-04-26] MEDS: Pantoprazole 40 MG Tab.CR PO SCH (10:14)
[2017-04-26] MEDS: Pregabalin 50 MG Cap PO SCH ×2 (10:15→20:34)
[2017-04-26] MEDS: Aspirin 81 MG Tab.EC PO SCH (10:15)
[2017-04-26] MEDS: Tamsulosin 0.4 MG Cap.ER PO SCH (10:15)
[2017-04-26] MEDS: Cetirizine 10 MG Tab PO SCH (10:15)
[2017-04-26] MEDS: Carvedilol 6.25 MG Tab PO SCH ×3 (10:15→20:36)
[2017-04-26] MEDS: Baclofen 10 MG Tab PO SCH ×2 (10:15→20:29)
[2017-04-26] MEDS: Enoxaparin 30 MG/0.3 ML Syringe SUBCUT SCH (10:16)
--- NOTE | 2017-04-26 10:42 | CR ---
INDICATION: Fever. CHEST: Semiupright portable view of the chest was obtained with poor inspiration 04/25/2017 and compared with 12/20/2014. The heart did not appear grossly enlarged, although the left ventricular contour is somewhat angular, raising question of minimal left ventricular aneurysm. This should be correlated clinically. The aorta is somewhat tortuous. There may be some minimal calcification in the arch of the aorta. Overlying EKG leads are noted. A definite active infiltrate or effusion was not identified. Upper lung field pulmonary vasculature is slightly prominent which may be on the basis of semiupright positioning and AP positioning with poor inspiration. A definite active infiltrate or effusion was not identified, although medial basilar infiltrates of minimal degree cannot be entirely excluded. IMPRESSION: 1. Probable ASHD. Question the possibility of a minimal left ventricular aneurysm - correlate clinically. 2. No definite acute process - difficult to exclude minimal patchy bronchopneumonia at the medial posterior lung bases. MTDD
--- NOTE | 2017-04-26 11:12 | PN ---
DATE SEEN: 04/26/2017 SUBJECTIVE: Hal Noel is a 76-year-old male admitted last evening with recent fall. Urosepsis appears to be an issue. Only a little bit more responsive as of this morning. CT head, normal. Cervical spine CT, normal. Laboratory studies were reviewed and appropriate, culture pending. Levaquin has been started. OBJECTIVE: VITAL SIGNS: Stable and documented. GENERAL: Awakens eyes, follows, speech is garbled. CHEST: Clear in all lung manzano. HEART: Regular without ectopy or murmur. ABDOMEN: Benign. SKIN: Without rash. ASSESSMENT: Change in neurological status, normal CT, metastatic bladder cancer, Landaverde catheter, urosepsis. PLAN: Interventional care, close observation, and recommendations as appropriate. We will continue antibiotic therapy. 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 /[id number] ANITA/APOLLO
--- NOTE | 2017-04-26 14:10 | HP ---
ADMISSION DATE: 04/25/2017 HISTORY OF PRESENT ILLNESS: Hal Noel is a 76-year-old male who presently resides at [facility]. He was transferred from [facility] at [facility] after sustaining a fall at the shelter. When he arrived in the ER, he was responding to pain only and not to voice. Pupils were pinpoint and not responding to light. Gag reflex was present. Neck was supple. He was hypertensive in nature. CT of the head and spine were performed and revealed no pathology. Family was contacted. No intervention was allowed. MEDICATIONS: Please see med recon list. ALLERGIES: Allergic to barbiturates, codeine, cortisone, gabapentin, iodine, meperidine, morphine, penicillin, sulfa, tetanus, and radioactive dyes. PAST MEDICAL HISTORY: Significant for previous right total knee arthroplasty. He has widely metastatic bladder cancer, recent biopsy March 2016 revealed liver pathology. Intervention and care as appropriate. No other operative procedures, hospitalizations, unusual childhood diseases, major injuries, or fractures. SOCIAL HISTORY: Resides at [facility]. Former smoker, no alcohol consumption, and no illicit drug use. REVIEW OF SYSTEMS: Difficult, will not answer questions with any opportunity. PHYSICAL EXAMINATION: VITAL SIGNS: 37.2; 73 is the pulse; 85/46 is the blood pressure, 98/44, 103/42, and 93/77; respirations 19; O2 saturation 95%. GENERAL: Awakens but noncommunicative. Speech was garbled. No focal findings. HEENT: Funduscopic benign. Bright TMs. Decreased nasal discharge. Mouth and oropharynx clear. Good gag reflex. CHEST: Clear in all lung manzano. Decreased breath sounds at both bases. HEART: Regular. SKIN: Without rash. ABDOMEN: Benign. Landaverde catheter in place. Diapers in place. EXTREMITIES: Right total knee arthroplasty surgical scar. Toes downgoing and plantar flexion. LABORATORY STUDIES: White count 23,100, hemoglobin 10.1, microcytic indices. Sodium 129, BUN 72, creatinine 3.1, and GFR of 20. Urinalysis markedly abnormal, culture pending. Blood cultures x2 pending. ASSESSMENT: A 76-year-old gentleman who presents with recent fall, reduced level of consciousness, and evidence of urosepsis with underlying bladder carcinoma. PLAN: IV antibiotics, IV fluids, accompanying care and intervention, supportive management, and appropriate treatment. /[id number] ANITA/APOLLO
[2017-04-26] MEDS: Levofloxacin/Dextrose 5%-Water 250 MG in Premix Bag 1 BAG IV SCH (20:25)
[2017-04-26] MEDS: atorvaSTATin 20 MG Tab PO SCH (20:29)
[2017-04-27] MEDS: Tamsulosin 0.4 MG Cap.ER PO SCH (08:50)
[2017-04-27] MEDS: Baclofen 10 MG Tab PO SCH ×2 (08:50→20:52)
[2017-04-27] MEDS: Aspirin 81 MG Tab.EC PO SCH (08:50)
[2017-04-27] MEDS: Pantoprazole 40 MG Tab.CR PO SCH (08:51)
[2017-04-27] MEDS: Enoxaparin 30 MG/0.3 ML Syringe SUBCUT SCH (08:51)
[2017-04-27] MEDS: Cetirizine 10 MG Tab PO SCH (08:51)
[2017-04-27] MEDS: Pregabalin 50 MG Cap PO SCH ×2 (09:05→20:52)
--- NOTE | 2017-04-27 10:20 | PN ---
DATE SEEN: 04/27/2017 SUBJECTIVE: Hal Noel is a 76-year-old male, [facility] resident, admitted with a recent fall, decreased level of consciousness, concerns about either metabolic or cerebrovascular event, and was admitted to the hospital for treatment. He has widely metastatic bladder cancer with recent liver biopsy in March of 2017 confirmatory. May be back to baseline. Speaks infrequently. Response to commands with some suggestion. LABORATORY DATA: Of significance noted CBC, low hemoglobin 10.1, but markedly reduced renal function with creatinine of 3.1, and GFR of 20. Hospice under consideration. PHYSICAL EXAMINATION: VITAL SIGNS: Temperature 37.1, pulse 60, blood pressure 92/47, mean blood pressure 62, O2 saturation 94% with a respiration of 16. CHEST: Clear in all lung manzano. HEART: Regular without ectopy or murmur. ABDOMEN: Benign. IMAGING: Head CT and cervical spine CT nondiagnostic - aging process only. ASSESSMENT: Declining health, metastatic urinary bladder carcinoma. PLAN: Comfort measures, fluids, and hydration. We will discontinue the telemetry, continue treatment observation, and will transfer from ICU to a medical bed. /[id number] ANITA/APOLLO
[2017-04-27] MEDS: Sodium Chloride 0.9% 1,000 ML IV SCH (12:14)
[2017-04-27] MEDS: Levofloxacin/Dextrose 5%-Water 250 MG in Premix Bag 1 BAG IV SCH (19:38)
[2017-04-27] MEDS: atorvaSTATin 20 MG Tab PO SCH (20:52)
[2017-04-28] MEDS: Sodium Chloride 0.9% 1,000 ML IV SCH (02:36)
[2017-04-28] MEDS: Baclofen 10 MG Tab PO SCH ×2 (08:33→20:29)
[2017-04-28] MEDS: Aspirin 81 MG Tab.EC PO SCH (08:33)
[2017-04-28] MEDS: Tamsulosin 0.4 MG Cap.ER PO SCH (08:33)
[2017-04-28] MEDS: Pantoprazole 40 MG Tab.CR PO SCH (08:34)
[2017-04-28] MEDS: Enoxaparin 30 MG/0.3 ML Syringe SUBCUT SCH (08:34)
[2017-04-28] MEDS: Cetirizine 10 MG Tab PO SCH (08:34)
[2017-04-28] MEDS: Pregabalin 50 MG Cap PO SCH ×2 (08:40→20:29)
[2017-04-28] MEDS ORDERED: Sodium Chloride 0.9% 10 ML Syringe FLUSH PRN (08:40)
--- NOTE | 2017-04-28 10:29 | PN ---
DATE SEEN: 04/28/2017 SUBJECTIVE: Hal Noel is a 76-year-old male, admitted with reduced level of consciousness, hypotension, and a recent fall. Has made nice improvement. More awake, more alert, conversation appropriate, feeding himself intermittently. Hospice has been consulted due to the metastatic nature of his bladder cancer. Otherwise, doing well. OBJECTIVE: VITAL SIGNS: Stable. Temperature 36.8, 75 is the pulse, 92/48, mean blood pressure 62, respirations 20, O2 saturation 93% on room air. GENERAL: More bright, more alert. Speech was soft-spoken at present. NECK: Benign. Thyroid small. CHEST: Clear in all lung manzano. HEART: Regular without ectopy or murmur. ABDOMEN: Benign. Landaverde catheter draining well. LABORATORY DATA: Blood cultures negative; urine culture, no growth at 48 hours. ASSESSMENT: Urosepsis, still suspected. PLAN: We will DC IV fluids. Cooperative care and well being, likely discharge home tomorrow. /[id number] ANITA/APOLLO
[2017-04-28] MEDS ORDERED: Sodium Chloride 0.9% 250 ML IV SCH (15:00)
[2017-04-28] MEDS: Levofloxacin/Dextrose 5%-Water 250 MG in Premix Bag 1 BAG IV SCH (19:42)
[2017-04-28] MEDS: atorvaSTATin 20 MG Tab PO SCH (20:29)
[2017-04-28] MEDS: Sodium Chloride 0.9% 10 ML Syringe FLUSH PRN (21:10)
[2017-04-29 07:34] VITALS: BP 108/60
[2017-04-29] MEDS: Tamsulosin 0.4 MG Cap.ER PO SCH (08:25)
[2017-04-29] MEDS: Aspirin 81 MG Tab.EC PO SCH (08:25)
[2017-04-29] MEDS: Pregabalin 50 MG Cap PO SCH (08:26)
[2017-04-29] MEDS: Baclofen 10 MG Tab PO SCH (08:26)
[2017-04-29] MEDS: Cetirizine 10 MG Tab PO SCH (08:26)
[2017-04-29] MEDS: Pantoprazole 40 MG Tab.CR PO SCH (08:26)
[2017-04-29] MEDS ORDERED: Ciprofloxacin 250 MG Tab PO SCH (09:00)
[2017-04-29] MEDS: Enoxaparin 30 MG/0.3 ML Syringe SUBCUT SCH (09:28)
--- NOTE | 2017-04-29 10:13 | PN ---
DATE SEEN: 04/29/2017 SUBJECTIVE: Hal Noel is a 76-year-old male, resident of [facility] was admitted with recurrent falls, weakness, lethargy and suspicion for urosepsis. Has made a good recovery. A little more wakeful and little more alert. Has known metastatic bladder cancer. OBJECTIVE: VITAL SIGNS: Vital signs have been stable. 37.3, 68, 108/60, mean blood pressure is 76, respirations 16, 98% on room air. GENERAL: A bit more wakeful. Speech was limited. NECK: Benign. Thyroid small. CHEST: Clear in all lung manzano. CARDIAC: Regular without ectopy or murmur. ABDOMEN: Benign. Landaverde catheter draining well. ASSESSMENT: Urosepsis. PLAN: No blood cultures were positive, urine cultures still pending. We will discharge home on ciprofloxacin care management. Hospice under consideration. /[id number] ANITA/APOLLO
--- NOTE | 2017-04-30 11:36 | DISCH ---
DISCHARGE DATE: 04/29/2017 HOSPITAL COURSE: Hal Noel is a 76-year-old male, admitted with acute lethargy, decreased responsiveness, fall, and suspicion for urosepsis. Urinalysis was markedly abnormal along with pyuria and elevated white count. He was admitted for treatment and intervention, given borderline renal function. Medications were adjusted accordingly. Intravenous fluids, intravenous antibiotics, complementary improved mentation, improved activity, but still quite subdued. Hospice was consulted, but interaction with family members has made it difficult to complete this process. At the time of discharge, he was more wakeful, fever was absent, in reasonable spirits, and tolerating medications. PLAN: Discharged with meds for treatment and care back to [facility]. /[id number] ANITA/APOLLO
== END 2017-04-29 10:40 | disposition home or self-care (01) | DRG 690 ==
LOC: FB.ED 17:26 → FB.ICU 19:54 → FB.MS 04-27 08:21
PROVIDERS: ADMIT Family Medicine; ATTEND Family Medicine
DX: A41.9 Sepsis, unspecified organism (principal); R41.82 Altered mental status, unspecified; N39.0 Urinary tract infection, site not specified; C79.9 Secondary malignant neoplasm of unspecified site; C67.9 Malignant neoplasm of bladder, unspecified; Z96.651 Presence of right artificial knee joint; I48.91 Unspecified atrial fibrillation; I25.10 Atherosclerotic heart disease of native coronary artery without angina pectoris; Z87.891 Personal history of nicotine dependence; K21.9 Gastro-esophageal reflux disease without esophagitis; N18.9 Chronic kidney disease, unspecified; E11.22 Type 2 diabetes mellitus with diabetic chronic kidney disease; W19.XXXA Unspecified fall, initial encounter; Y92.129 Unspecified place in nursing home as the place of occurrence of the external cause; I12.9 Hypertensive chronic kidney disease with stage 1 through stage 4 chronic kidney disease, or unspecified chronic kidney disease; R29.6 Repeated falls; I95.9 Hypotension, unspecified
CPT/HCPCS: 36415; 51702; 70450; 71010; 72125; 80048; 81001; 82550; 83605; 83880; 84484; 85025; 85610; 87040 ×2; 87086; 93005; 96365; 99285 ×2; J1956; J7040; 96366; A9270-GY; J1650; J7050

== ENCOUNTER 2017-05-03 05:34 | Emergency (ER) | payer MEDICARE ==
[2017-05-03] MEDS ORDERED: Acetaminophen 500 MG Tab PO ONE (05:45)
[2017-05-03 05:51] VITALS: BP 102/61
--- NOTE | 2017-05-03 05:58 | EDM.PDOC ---
ED HPI GENERAL MEDICAL PROBLEM - General Chief Complaint: General Stated Complaint: FALL Time Seen by Provider: 05/03/17 05:50 Source of Information: Reports: Patient, Old Records, RN History Limitations: Reports: Other (very poor hearing) - History of Present Illness INITIAL COMMENTS - FREE TEXT/NARRATIVE: 76 yo male had an unwitnessed fall at the [facility] tonight. He reported a SMITH and R hip pain. Vitals stable. No known LOC. Is on no anticoagulants. Here or eval. No vomiting. Onset: Today Onset Date: 05/03/17 Onset Time: 05:15 Duration: Minutes: Location: Reports: Head, Lower Extremity, Right Quality: Reports: Ache Severity: Moderate Improves with: Reports: None Worsens with: Reports: Movement (R leg) Context: Reports: Other (fall at [facility]) Associated Symptoms: Reports: No Other Symptoms Treatments [employer]BER: Reports: Other (see below) (None) Right Hip Pain Score (Numeric/FACES): 7 - Related Data Allergies Allergy/AdvReac Type Severity Reaction Status Date / Time Barbiturates Allergy Cannot Verified 05/03/17 05:44 Remember codeine Allergy Cannot Verified 05/03/17 05:44 Remember cortisone [Cortisone] Allergy Cannot Verified 05/03/17 05:44 Remember gabapentin Allergy UNKNOWN Verified 05/03/17 05:44 iodine Allergy Cannot Verified 05/03/17 05:44 Remember meperidine HCl [From Demerol] Allergy Cannot Verified 05/03/17 05:44 Remember morphine Allergy Cannot Verified 05/03/17 05:44 Remember Penicillins Allergy Cannot Verified 05/03/17 05:44 Remember Sulfa (Sulfonamide Allergy Cannot Verified 05/03/17 05:44 Antibiotics) Remember Tetanus Vaccines and Toxoid Allergy Cannot Verified 05/03/17 05:44 [Tetanus Vaccines & Toxoid] Remember tramadol Allergy Cannot Verified 05/03/17 05:44 Remember opti-raydye Allergy Cannot Uncoded 05/03/17 05:44 Remember Home Meds: Home Meds Acetaminophen [Tylenol] 650 mg PO Q4HR PRN 04/25/17 [History] Baclofen 5 mg PO BID 04/25/17 [History] Bisacodyl [Dulcolax] 10 mg RECTAL Q72H PRN 04/25/17 [History] Carvedilol 6.25 mg PO BID 04/25/17 [History] Dextrose 50% in Water [Dextrose 50%-Water] 25 gm IV ASDIRECTED PRN 04/25/17 [ History] Dextrose [Glutose 15] 15 gm PO ASDIRECTED PRN 04/25/17 [History] Emollient [Vanicream] 1 applic TOP BID 04/25/17 [History] Ferrous Sulfate 324 mg PO BID 04/25/17 [History] Glucagon,Human Recombinant [Glucagon Emergency Kit] 1 mg IM ASDIRECTED PRN 04/25 [History] Levocetirizine Dihydrochloride [Xyzal] 5 mg PO DAILY 04/25/17 [History] Loperamide [Imodium] 2 mg PO ASDIRECTED PRN 04/25/17 [History] Magnesium Hydroxide [Milk of Magnesia] 30 ml PO DAILY PRN 04/25/17 [History] Melatonin 3 mg PO BEDTIME PRN 04/25/17 [History] Pantoprazole Sodium [Protonix] 40 mg PO DAILY 04/25/17 [History] Pregabalin [Lyrica] 50 mg PO BID 04/25/17 [History] Tamsulosin HCl [Flomax] 0.4 mg PO DAILY 04/25/17 [History] atorvaSTATin Calcium [Atorvastatin Calcium] 20 mg PO BEDTIME 04/25/17 [History] guaiFENesin [Robitussin] 200 mg PO Q4H PRN 04/25/17 [History] Aspirin [Halfprin] 81 mg PO DAILY tab.ec 04/29/17 [Rx] Ciprofloxacin [Ciprofloxacin HCl] 250 mg PO BID #20 tablet 04/29/17 [Rx] Past Medical History HEENT History: Reports: Hard of Hearing Cardiovascular History: Reports: Afib, CAD, Hypertension, SOB on Exertion Respiratory History: Reports: SOB Other Respiratory History: past hx hypoxic resp failure Gastrointestinal History: Reports: GERD Genitourinary History: Reports: Other (See Below) Other Genitourinary History: CHRONIC KIDNEY DISEASE Musculoskeletal History: Reports: Other (See Below) Other Musculoskeletal History: DJD Endocrine/Metabolic History: Reports: Diabetes, Type II Oncologic (Cancer) History: Reports: Bladder Other Oncologic History: mets to liver - Infectious Disease History Infectious Disease History: Reports: Other (See Below) Other Infectious Disease History: unknown Social & Family History - Family History Family Medical History: Noncontributory - Tobacco Use Smoking Status *Q: Former Smoker Years of Tobacco use: 5 Used Tobacco, but Quit: Yes Month Tobacco Last Used: unknown Second Hand Smoke Exposure: No - Caffeine Use Caffeine Use: Reports: Coffee, Soda Other Caffeine Use: unknown Caffeine Use Comment: unknown - Alcohol Use Days Per Week of Alcohol Use: 0 - Recreational Drug Use Recreational Drug Use: No ED ROS GENERAL - Review of Systems Review Of Systems: See Below Constitutional: Reports: No Symptoms HEENT: Reports: Hearing Loss (chronic) Respiratory: Reports: No Symptoms Cardiovascular: Reports: No Symptoms GI/Abdominal: Reports: No Symptoms : Reports: No Symptoms Musculoskeletal: Reports: Joint Pain (R hip) Skin: Reports: Other (abrasions of both knees. Bruising to the top of the head.) Neurological: Reports: No Symptoms Psychiatric: Reports: No Symptoms ED EXAM, GENERAL - Physical Exam Exam: See Below Exam Limited By: No Limitations General Appearance: Alert, WD/WN, No Apparent Distress Eye Exam: Bilateral Eye: Normal Inspection, Other (pale conjunctivas) Ears: Normal External Exam, Normal Canal, Normal TMs, Hearing Loss. No: Hearing Grossly Normal Ear Exam: Bilateral Ear: Auricle Normal, Canal Normal, TM normal Nose: Normal Inspection, No Blood Throat/Mouth: Normal Inspection, Normal Lips, Normal Oropharynx, No Airway Compromise Head: Other (Bruising to the top of his head without swelling) Respiratory/Chest: No Respiratory Distress, Lungs Clear, Normal Breath Sounds, No Accessory Muscle Use Cardiovascular: Regular Rate, Rhythm, No Edema GI/Abdominal: Soft, Non-Tender, No Distention, Pelvis Stable Extremities: Normal Inspection, Other (R hip with movement of that leg. ) Neurological: Alert, No Motor/Sensory Deficits Psychiatric: Normal Affect, Normal Mood Skin Exam: Warm, Dry, No Rash, Pallor, Other (abrasions of both knees.) Lymphatic: No Adenopathy Course - Vital Signs Text/Narrative:: acetaminophen 1000 mg po R hip [id number] pelvis [id number] Last Recorded V/S: Last Vital Signs Temp 36.6 C 05/03/17 05:50 Pulse 70 05/03/17 05:50 Resp 14 05/03/17 05:50 BP 102/61 05/03/17 05:50 Pulse Ox 94 L 05/03/17 05:50 - Orders/Labs/Meds Orders: Active Orders 24 hr Category Date Time Status Hip Min 2V or 3V w Pelvis Rt [CR] Stat Exams 05/03/17 05:48 Taken Labs: Laboratory Tests 05/03/17 Range/Units 06:15 Hgb 10.6 L (11.5-15.5) g/dL Meds: Medications Discontinued Medications Generic Name Dose Route Start Last Admin Trade Name Maxi PRN Reason Stop Dose Admin Acetaminophen 1,000 mg 05/03/17 05:45 05/03/17 06:01 Tylenol Extra Strength PO 05/03/17 05:46 1,000 mg ONETIME ONE Administration Departure - Departure Time of Disposition: 06:40 Disposition: Home, Self-Care 01 Condition: Good Clinical Impression: Fall in elderly patient, Hip pain, right - Discharge Information Referrals: Joe Hong MD [Primary Care Provider] - Forms: ED Department Discharge - My Orders Last 24 Hours: My Active Orders 05/03/17 05:48 Hip Min 2V or 3V w Pelvis Rt [CR] Stat - Assessment/Plan Last 24 Hours: My Active Orders 05/03/17 05:48 Hip Min 2V or 3V w Pelvis Rt [CR] Stat
--- NOTE | 2017-05-03 12:12 | CR ---
INDICATION: Fall. PELVIS WITH RIGHT HIP: Frontal view of the pelvis with frontal and lateral views of the right hip revealed moderate hypertrophic degenerative changes at the right hip joint with relatively milder hypertrophic degenerative changes at the left hip joint. There does appear to be some focal narrowing of the cranial lateral right hip joint space. There also appear to be some subchondral cystic changes on the right. A fracture or dislocation was not identified. Mild degenerative changes are noted at the right sacroiliac joint. Sclerotic density in the right femoral head, measuring approximately a centimeter, is compatible with a benign bone island. IMPRESSION: 1. No acute fracture or dislocation. 2. 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 3. Mild degenerative changes right sacroiliac joint. [facility]
== END 2017-05-03 06:49 | disposition home or self-care (01) ==
LOC: FB.ED 05:34
DX: M25.551 Pain in right hip (principal); I48.91 Unspecified atrial fibrillation; I25.10 Atherosclerotic heart disease of native coronary artery without angina pectoris; E11.22 Type 2 diabetes mellitus with diabetic chronic kidney disease; I12.9 Hypertensive chronic kidney disease with stage 1 through stage 4 chronic kidney disease, or unspecified chronic kidney disease; N18.9 Chronic kidney disease, unspecified; K21.9 Gastro-esophageal reflux disease without esophagitis; Z85.51 Personal history of malignant neoplasm of bladder; Z85.05 Personal history of malignant neoplasm of liver; Z87.891 Personal history of nicotine dependence; Z79.899 Other long term (current) drug therapy; Z79.82 Long term (current) use of aspirin; Z88.6 Allergy status to analgesic agent; Z88.8 Allergy status to other drugs, medicaments and biological substances; Z88.0 Allergy status to penicillin; Z88.1 Allergy status to other antibiotic agents; Z88.2 Allergy status to sulfonamides; Z91.041 Radiographic dye allergy status; W19.XXXA Unspecified fall, initial encounter
CPT/HCPCS: 36415; 73502; 85018; 99284; A9270; 99283

== ENCOUNTER 2017-05-07 16:51 | Emergency (ER) | payer MEDICARE ==
[2017-05-07 17:20] VITALS: BP 95/56
--- NOTE | 2017-05-10 10:12 | ER ---
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 He was actually admitted on 02/16/2017 approximately 2 weeks later. The patient was noted to have had difficulty breathing in [facility] and is here for further evaluation. He is very much alienated from his children and wants a "full code." He is , and a son in [place] has Power of Bryologist. This son does not want to do much for his father also. He is markedly hard of hearing. 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 CURRENT MEDICATIONS: 1. VaniCream (emollient). 2. Robitussin. 3. Tamsulosin. 4. Melatonin. 5. Magnesium hydroxide. 6. Imodium. 7. Dextrose p.r.n. 8. Glucagon p.r.n. 9. Dulcolax. 10.D5W p.r.n. (IV) for hypoglycemia. 11.Aspirin 81 mg daily. 12.Protonix 40 mg daily. 13.Baclofen 5 mg b.i.d. 14.Atorvastatin 20 mg daily. 15.Lyrica 50 mg b.i.d. 16.Carvedilol 6.25 mg b.i.d. 17.Iron sulfate 324 mg b.i.d. PHYSICAL EXAMINATION: GENERAL: The patient is very hard of hearing, has fullness in his face. No edema noted. HEENT: He has pale conjunctiva. NECK: He has no cervical adenopathy. No bruits in neck. LUNGS: No rales noted. HEART: S1, S2. He does have slight irregular rate and rhythm. ABDOMEN: Soft. No guarding. No abdominal discomfort. Liver is palpable. Spleen is palpable. Mild fullness in suprapubic area. EXTREMITIES: Lower extremities 1+ pedal edema. LABORATORY STUDIES: Chest x-ray performed, did not reveal any abnormalities or infiltrates. Further laboratories were not performed. The patient's respiratory status was stable in the ED. His oxygen saturation is 97%, respiratory rate 18, blood pressure ranging from 90s to 110s over 50s, heart rate 36 to 60s to low 50s. The patient can communicate by writing some. He has poor hearing. He has hearing aids in place, but does seem to do very well. ASSESSMENT: 1. History of possible apnea. Not evident in the ED. 2. Possible oxygen drop in oxygen saturation secondary to mucous plug. This was cleared with albuterol neb and also respiratory effort and activity. 3. Mild dementia. 4. Poor social relationship with his children, they have all abandoned him because of his behavior, which was apparently inappropriate when they were in childhood. 5. Bradycardia. 6. Status post urosepsis hospitalization. 7. Chronic kidney disease. 8. Anemia. 9. Dementia. 10.Status post L1 vertebral fracture. 11.Bladder cancer, liver cancer, and METS to the brain. PLAN: [facility]. No antibiotics given. No change in medicine. Plan to use albuterol neb p.r.n. rescue for respirations, if he should have drop in respirations, presumably may have mucous plug. TIME SEEN: The patient was seen at 1700. /[id number] AVINASH/APOLLO
--- NOTE | 2017-05-10 15:10 | CR ---
INDICATION: Short of breath. CHEST: AP upright view of the chest was obtained 05/07/2017 and compared with 04/25/2017 and 12/20/2014 revealing the aorta to be tortuous. The heart did not appear grossly enlarged. Left ventricular contour appeared normal in this projection. Overlying EKG leads are noted. Evidence of fusion is noted in the lower cervical spine. Linear change at the left lower lung field is noted and may be fibrotic in nature, or due to subsegmental atelectasis in that area. There may be some less prominent linear changes at the right lung base. Poor inspiration emphasizes this appearance. Portable study is less than ideal. Would suggest full inspiration PA and lateral views when clinically possible. No gross consolidating pneumonia or effusion was seen. No definite evidence of CHF is seen, although upper lung field pulmonary vasculature is minimally prominent. This should be correlated clinically in light of the relatively normal heart size and could be on the basis of fluid overload or possibly process such as renal failure. MTDD
== END 2017-05-07 18:35 ==
LOC: FB.ED 16:51
DX: R00.1 Bradycardia, unspecified (principal); R06.00 Dyspnea, unspecified; F03.90 Unspecified dementia, unspecified severity, without behavioral disturbance, psychotic disturbance, mood disturbance, and anxiety; I12.9 Hypertensive chronic kidney disease with stage 1 through stage 4 chronic kidney disease, or unspecified chronic kidney disease; N18.3 Chronic kidney disease, stage 3 (moderate); E11.22 Type 2 diabetes mellitus with diabetic chronic kidney disease; C79.31 Secondary malignant neoplasm of brain; C78.7 Secondary malignant neoplasm of liver and intrahepatic bile duct; C67.9 Malignant neoplasm of bladder, unspecified; I48.91 Unspecified atrial fibrillation; I25.10 Atherosclerotic heart disease of native coronary artery without angina pectoris; D64.9 Anemia, unspecified; Z79.82 Long term (current) use of aspirin; Z79.899 Other long term (current) drug therapy
CPT/HCPCS: 71010; 82962; 99283; 99285